=== PATIENT | female | born 1930 | race Caucasian/White ===

== ENCOUNTER 2018-04-23 20:41 | Emergency (ER) | payer OTHER ==
[2018-04-23 20:54] VITALS: BP 174/94; PULSE 113; TEMP 98; BMI 38.1
[2018-04-23] MEDS ORDERED: DIPHTH,PERTUSS(ACELL),TET 0.5 ML DISP.SYRIN IM ONE (20:55)
--- NOTE | 2018-04-23 20:55 | PDOC ---
Rapid Medical Evaluation Chief Complaint: Injury Time Seen by Provider: 04/23/18 20:51 Medical Evaluation: Allergies Allergy/AdvReac Type Severity Reaction Status Date / Time aspirin AdvReac Verified 08/31/13 11:22 04/23/18 20:51 I have performed a brief in-person evaluation of this patient. The patient presents with a chief complaint of: Pt's son and daughter with pt who speaks IRISH. States she had slippery socks on when she slipped and fell back. Pt struck the right occiput to the corner of the floor causing 3cm vert lac. Neg blood thinners. Neg LOC, Dizziness/lightheadedness, neck pain Pertinent physical exam findings: 3cm vert lac to right occiput I have ordered the following: CT scan Head w/o contrast, Boostrix The patient will proceed to the ED for further evaluation Discharge Disposition - Referrals Referrals: Jose Maria Benítez MD [Primary Care Provider] - - Patient Instructions - Post Discharge Activity
--- NOTE | 2018-04-23 22:30 | PDOC ---
History of Present Illness - General Chief Complaint: Injury Stated Complaint: INJURY Time Seen by Provider: 04/23/18 20:51 History Source: Patient Exam Limitations: Language Barrier - History of Present Illness Initial Comments: 04/24/18 00:39 88-year-old female presents to the ER with her son and nephew complaining of a laceration to the right occiput scalp. Patient states while wearing slippery socks, she slipped and fell, hitting her head on the corner of the room. Fall was witnessed by family who denied any LOC. Patient denies headache, dizziness, lightheadedness, nausea/vomiting, fever/chills, neck pains, back pains, chest pain, shortness of breath, abdominal pains, flank pains, extremity numbness or tingling sensation. Patient denies being on any blood thinners. Patient states she feels fine. Unknown last tetanus. Unknown last tetanus. Past History - Past Medical History Allergies/Adverse Reactions: Allergies Allergy/AdvReac Type Severity Reaction Status Date / Time No Known Allergies Allergy Verified 04/23/18 22:24 Home Medications: Ambulatory Orders Albuterol Sulfate [Proair Hfa -] 1 - 2 inh PO PRN #0 hfa.aer.ad 09/04/13 Calcium Carbonate/Vitamin D3 [Calcium 500 + Vit D 200 Tablet] 1 each PO DAILY # 0 tablet 09/04/13 Docusate Sodium [Colace -] 100 mg PO DAILY #0 capsule 09/04/13 Folic Acid - 1 mg PO DAILY #0 tablet 09/04/13 Lansoprazole [Prevacid] 30 mg PO DAILY #0 capsule.dr 09/04/13 Losartan Potassium 50 mg PO DAILY #0 tablet 09/04/13 Metoprolol Succinate [Toprol XL -] 50 mg PO DAILY #0 tab.sr.24h 09/04/13 Risedronate Sodium [Actonel (Monthly)] 150 mg PO Q30D #0 tablet 09/04/13 traMADol HCL [Ultram -] 50 mg PO Q8H PRN #0 tablet 09/04/13 Cardiac Disorders: No GI Disorders: Yes (ULCER 2004) HTN: Yes Hypercholesterolemia: Yes - Surgical History Abdominal Surgery: Yes (cholecystectomy 2007) Cholecystectomy: Yes - Suicide/Smoking/Psychosocial Hx Smoking Status: No Smoking History: Never smoked Have you smoked in the past 12 months: No Number of Cigarettes Smoked Daily: 0 Hx Alcohol Use: No Drug/Substance Use Hx: No Substance Use Type: None Hx Substance Use Treatment: No Review of Systems - Review of Systems Able to Perform ROS?: Yes Comments:: 04/24/18 00:40 CONSTITUTIONAL: Absent: fever, chills, diaphoresis, generalized weakness, malaise, loss of appetite HEENT: Absent: rhinorrhea, nasal congestion, throat pain, throat swelling, difficulty swallowing, mouth swelling, ear pain, eye pain, visual Changes CARDIOVASCULAR: Absent: chest pain, loss of consciousness, palpitations, irregular heart rate, peripheral edema RESPIRATORY: Absent: cough, shortness of breath, dyspnea with exertion, orthopnea, wheezing, stridor, hemoptysis GASTROINTESTINAL: Absent: abdominal pain, abdominal distension, nausea, vomiting, diarrhea, constipation, melena, hematochezia GENITOURINARY: Absent: dysuria, frequency, urgency, hesitancy, hematuria, flank pain, genital pain MUSCULOSKELETAL: Absent: myalgia, arthralgia, joint swelling SKIN: Absent: rash, itching, pallor HEMATOLOGIC/IMMUNOLOGIC: Absent: easy bleeding, easy bruising, lymphadenopathy, frequent infections ENDOCRINE: Absent: unexplained weight gain, unexplained weight loss, heat intolerance, cold intolerance NEUROLOGIC: Absent: headache, focal weakness or paresthesias, dizziness, unsteady gait, seizure, mental status changes, bladder or bowel incontinence PSYCHIATRIC: Absent: anxiety, depression, suicidal or homicidal ideation, hallucinations. Is the patient limited Chinese proficient: No *Physical Exam - Vital Signs Last Vital Signs Temp Pulse Resp BP Pulse Ox 98.0 F 113 H 13 174/94 96 04/23/18 20:50 04/23/18 20:50 04/23/18 20:50 04/23/18 20:50 04/23/18 20:50 - Physical Exam Comments: 04/24/18 00:40 GENERAL: Well developed, well nourished. Awake and alert. No acute distress. HEENT: Normocephalic, atraumatic. PERRLA, EOMI. No conjunctival pallor. Sclera are non- icteric. Moist mucous membranes. Oropharynx is clear. NECK: Supple. Full ROM. No JVD. Carotid pulses 2+ and symmetric, without bruits. No thyromegaly. No lymphadenopathy. CARDIOVASCULAR: Regular rate and rhythm. No murmurs, rubs, or gallops. Distal pulses are 2+ and symmetric. PULMONARY: No evidence of respiratory distress. Lungs clear to auscultation bilaterally. No wheezing, rales or rhonchi. ABDOMINAL: Soft. Non-tender. Non-distended. No rebound or guarding. No organomegaly. Normoactive bowel sounds. MUSCULOSKELETAL Normal range of motion at all joints. No bony deformities or tenderness. No CVA tenderness. EXTREMITIES: No cyanosis. No clubbing. No edema. No calf tenderness. SKIN: Warm and dry. Normal capillary refill. No rashes. No jaundice. NEUROLOGICAL: Right occiput: 3cm vert lac/full thickness Alert, awake, appropriate. Cranial nerves 2-12 intact. No deficits to light touch and temperature in face, upper extremities and lower extremities. No motor deficits in the in face, upper extremities and lower extremities. Normoreflexic in the upper and lower extremities. Normal speech. Toes are down- going bilaterally. Gait is normal without ataxia. PSYCHIATRIC: Cooperative. Good eye contact. Appropriate mood and affect. PROCEDURE NOTE Right occiput: 3 cm vertical laceration/full thickness Betadine prep 1% lidocaine: 5 mL Normal saline irrigation/copious (2) 4-0 Vicryl subcutaneous/ (5) rosaura Bacitracin Patient refuses Telfa and kerlex ED Treatment Course - RADIOLOGY Radiology Studies Ordered: Category Date Time Status HEAD CT WITHOUT CONTRAST [CT] Stat CT Scan 04/23/18 21:25 Completed Radiograph Interpretation: 04/24/18 00:42 CT head w/o contrast: neg *DC/Admit/Observation/Transfer Diagnosis at time of Disposition: Laceration of scalp Qualifiers: Encounter type: initial encounter Qualified Code(s): S01.01XA - Laceration without foreign body of scalp, initial encounter Head injury Qualifiers: Encounter type: initial encounter Qualified Code(s): S09.90XA - Unspecified injury of head, initial encounter - Discharge Dispostion Disposition: HOME Condition at time of disposition: Stable Decision to Admit order: No - Referrals Referrals: Jose Maria Benítez MD [Primary Care Provider] - - Patient Instructions Printed Discharge Instructions: DI for Laceration Repair of the Scalp, DI for Closed Head Injury Additional Instructions: Keep the incision clean and dry for 24 hours After 24 hours, you can get the incision wet. Avoid soaking Tylenol/motrin as needed for pain Wound check in 2 days Staple removal in 11 days Return to the ER for signs of infection: redness/swelling, drainage, dizziness - Post Discharge Activity
== END 2018-04-23 22:33 | disposition home or self-care (01) ==
LOC: JER 20:41 → JERFT 20:41
PROC: 0HQ0XZZ Repair Scalp Skin, External Approach (ICD-10-PCS; principal; 2018-04-23)
PROC: 3E0234Z Introduction of Serum, Toxoid and Vaccine into Muscle, Percutaneous Approach (ICD-10-PCS; 2018-04-23)
DX: S01.01XA Laceration without foreign body of scalp, initial encounter (principal); W01.0XXA Fall on same level from slipping, tripping and stumbling without subsequent striking against object, initial encounter; Y93.89 Activity, other specified; Y92.018 Other place in single-family (private) house as the place of occurrence of the external cause; I10 Essential (primary) hypertension; E78.00 Pure hypercholesterolemia, unspecified; Z87.19 Personal history of other diseases of the digestive system; Z90.49 Acquired absence of other specified parts of digestive tract
CPT/HCPCS: 12002; 70450-TC; 90471; 90715; 99281-25

== ENCOUNTER 2018-09-16 13:15 | Inpatient (IN) | payer OTHER ==
--- NOTE | 2018-09-16 13:30 | PDOC ---
Attending Attestation - HPI HPI: 09/16/18 16:06 Patient is an 88 year old female with a significant past medical history of HTN , Hypercholesterolemia, Amyloidosis (inactive since 2004, chronic SOB as a result of dx), who presents to the ED with complaints of diffuse abdominal pain that began last night. As per patient's daughter, patient began to experiencing gradually increased diffuse abdominal pain that she states subsided slightly before becoming acute this morning, prompting her to bring the patient into the ED for further evaluation. Patient reports abdominal pain is diffuse but states the pain is most intense in her RLQ. As per patient's grand son, patient was given 10 of oxy prior to ED arrival for pain with minor relief. Denies chest pain, Sob. Denies nausea, vomiting. Denies contact with sick individuals, out of state travelling. Denies trauma to affected area. Denies any constipation, diarrhea. Denies dysuria, hematuria. Denies any other symptoms. Allergies: None Social history: No smoking. No alcohol. No illicit drugs. Surgical history: cholecystectomy 2007 PMD: None - Physicial Exam PE: 09/16/18 16:06 Vitals: Triage Vital signs reviewed General Appearance: no acute distress, well nourished well developed Head: Atraumatic Chest Wall: Nontender Cardiac: Regular rate and rhythm, no murmurs, no rubs, no gallops Lungs: Clear to auscultation bilateral, good air movement bilaterally Abdomen: +Moderate RLQ tenderness to palpation. +Diffuse abdominal tenderness to palpation. Soft, non distended, normal bowel sounds Extremities: Full range of motion to all extremities, no cyanosis, clubbing, or edema Skin: Warm and dry, no rashes or lesions, no rash, no petechiae Neuro: AOX3; Cranial Nerves 2-12 grossly intact, Strength intact to all extremities, Sensation intact to all extremities, gait normal Psych: Normal mood, normal affect <Christophe Salguero - Last Filed: 09/16/18 16:23> - Resident Resident Name: Shawn Reese - ED Attending Attestation I have performed the following: I have examined & evaluated the patient, The case was reviewed & discussed with the resident, I agree w/resident's findings & plan, Exceptions are as noted - Critical Care Time Total Critical Care Time: 75 Critical Care Statement: The care of this patient involved high complexity decision making to prevent further life threatening deterioration of the patient 's condition and/or to evaluate & treat vital organ system(s) failure or risk of failure. 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 fib with RVR and diffuse abdominal pain. 1 L normal saline ordered patient placed on diltiazem drip after 5 mg bolus labs pending Labs notable for WBC of 14 creatinine normal CAT scan demonstates bowel edema possible pneumatosis Findings discussed with family. Goals of care redressed with family. Patient is DNR/DNI we will refill out paperwork as they do not have them with them Overall prognosis very poor given AML as well as new onset A. fib with RVR and now evidence of ischemia on abdominal CT when patient arrived back was acutely short of breath steroids nebs ordered BiPAP ordered however patient did not tolerate BiPAP placed back on a nasal cannula One dose Lasix given Patient continues to be on diltiazem drip we'll monitor breathing keep patient is comfortable's possible palliative care consultation and admit to medicine for further management. <Madi Robb - Last Filed: 09/16/18 21:48> Heart Score/ECG Review - ECG Impressions Comment:: 09/16/18 21:48 EKG performed at 1445 demonstrates fibrillation at [address] elevations or T -wave inversions. <Madi Robb - Last Filed: 09/16/18 21:48>
[2018-09-16 13:31] VITALS: BMI 38.1
--- NOTE | 2018-09-16 13:32 | PDOC ---
History of Present Illness - General Chief Complaint: Pain Stated Complaint: ABD PAIN Time Seen by Provider: 09/16/18 13:28 - History of Present Illness Initial Comments: 09/16/18 14:23 The patient is an 88 year old female with a history of HTN, HLD, recently diagnosed AML who presents for evaluation of abdominal pain. The patient is accompanied by family who assist in providing the history. They report that the patient has been experiencing increasingly worsening abdominal pain over the past 1-2 days. The patient's pain has been getting more severe in the RLQ prompting their presentation to the ED for further evaluation. They also note that the patient has been having some increased SOB as well, but otherwise deny fevers, chills, chest pain, vomiting, or changes with urination or bowel movements. Past History - Past Medical History Allergies/Adverse Reactions: Allergies Allergy/AdvReac Type Severity Reaction Status Date / Time No Known Allergies Allergy Verified 04/23/18 22:24 Home Medications: Ambulatory Orders Albuterol Sulfate [Proair Hfa -] 1 - 2 inh PO PRN #0 hfa.aer.ad 09/04/13 Calcium Carbonate/Vitamin D3 [Calcium 500 + Vit D 200 Tablet] 1 each PO DAILY # 0 tablet 09/04/13 Docusate Sodium [Colace -] 100 mg PO DAILY #0 capsule 09/04/13 Folic Acid - 1 mg PO DAILY #0 tablet 09/04/13 Lansoprazole [Prevacid] 30 mg PO DAILY #0 capsule.dr 09/04/13 Losartan Potassium 50 mg PO DAILY #0 tablet 09/04/13 Metoprolol Succinate [Toprol XL -] 50 mg PO DAILY #0 tab.sr.24h 09/04/13 traMADol HCL [Ultram -] 50 mg PO Q8H PRN #0 tablet 09/04/13 Cyanocobalamin [Vitamin B12 -] 1,000 mcg PO DAILY 09/16/18 Hydroxyurea [Hydrea -] 500 mg PO BID 09/16/18 Hyoscyamine Sulfate [Levsin] 0.375 mg PO ASDIR PRN 09/16/18 Meclizine HCl [Antivert -] 25 mg PO TID PRN 09/16/18 Ondansetron [Zofran Odt -] 4 mg SL TID PRN 09/16/18 Cardiac Disorders: No COPD: No CHF: No GI Disorders: Yes (ULCER 2004) HTN: Yes Hypercholesterolemia: Yes - Surgical History Abdominal Surgery: Yes (cholecystectomy 2007) Cholecystectomy: Yes - Suicide/Smoking/Psychosocial Hx Smoking Status: No Smoking History: Never smoked Have you smoked in the past 12 months: No Number of Cigarettes Smoked Daily: 0 Information on smoking cessation initiated: No Hx Alcohol Use: No Drug/Substance Use Hx: No Substance Use Type: None Hx Substance Use Treatment: No Review of Systems - Review of Systems Comments:: 09/16/18 14:29 Constitutional: No fevers, chills, fatigue, malaise HEENT: No Rhinorrhea, nasal congestion, visual changes Cardiovascular: No chest pain, syncope, palpitations, lightheadedness Respiratory: SOB. No Cough, Hemoptysis, Gastrointestinal: Abdominal pain, Nausea. No Vomiting, Constipation, Diarrhea, Melena Genitourinary: No Dysuria, Frequency, Urgency, Hesitancy, Hematuria, Flank pain Musculoskeletal: No Myalgia, arthralgia Skin: No rashes, itching, bruising, pallor Neurologic: No Headache, Dizziness, Numbness, Weakness, or Tingling Psychiatric: No Hallucinations. No SI or HI *Physical Exam - Vital Signs Last Vital Signs Temp Pulse Resp BP Pulse Ox 99.0 F 69 16 129/74 100 09/16/18 13:15 09/16/18 13:15 09/16/18 13:15 09/16/18 13:15 09/16/18 13:15 - Physical Exam Comments: 09/16/18 14:30 General Appearance: Nourished. In Moderate Apparent Distress HEENT: No Pharyngeal Erythema, Tonsillar Exudate, Tonsillar Erythema Neck: No Cervical Lymphadenopathy Respiratory/Chest: Lungs Clear, Normal Breath Sounds. No Crackles, Rales, Rhonchi, Wheezing Cardiovascular: Irregularly Irregular Rhythm, Tachycardic Rate. No Murmur, Gallops, Rubs Gastrointestinal/Abdominal: Normal Bowel Sounds, Soft. Diffuse tenderness to palpation worse in the RLQ with guarding. No Rebound, Musculoskeletal: No CVA Tenderness Extremity: Normal Capillary Refill Integumentary: Normal Color, Dry, Warm Neurologic: Fully Oriented, Alert, Normal Mood/Affect, Normal Response, Heart Score/ECG Review #1 ECG reviewed & interpreted by me at: 14:32 09/16/18 14:32 Atrial Fibrillation with RVR HR 121 No Acute Ischemic Changes. ED Treatment Course - LABORATORY CBC & Chemistry Diagram: 09/18/18 05:30 09/18/18 05:30 Medical Decision Making - Medical Decision Making 09/16/18 14:32 The patient is an 88 year old female with a history of HTN, HLD, recently diagnosed AML who presents for evaluation of abdominal pain. Differential includes but is not limited to: Appendicitis, Pancreatitis, Afib with RVR, Intra -abdominal pathology, Infectious, Metabolic Derangement. Given the patient's history and physical exam, we will obtain a cbc, cmp, troponin, vbg, ua, urine culture, blood culture, chest plain film, ekg, CT abdomen/pelvis to evaluate further. We will treat with iv fluids in the meantime and continue to monitor and reassess while here in the ED. 09/16/18 16:07 CBC demonstrates an elevated wbc to 14. CMP demonstrates a calcium of 6.5. Troponin is unremarkable. BNP is elevated to 5000s. Chest plain film was unremarkable. CT abdomen/pelvis demonstrated findings consistent with earlier bowel ischemia as read by our radiologist likely due to the patient's new onset afib with rvr. Patient's heart rate has continued to remain elevated despite being on a diltiazem drip. The patient developed some increased respiratory distress which is likely due to flash pulmonary edema and improved after duoneb , solu-medrol, lasix and a trial of bipap. Given the patient's multiple health issues, her prognosis is poor. The patient and her family do not want further anticoagulation at this time. Discussion held with the patient's family and the patient was made DNR. We will admit to telemetry. We discussed the case with the admitting team who accepted the patient for admission. *DC/Admit/Observation/Transfer Diagnosis at time of Disposition: Atrial fibrillation with RVR Abdominal pain Qualifiers: Abdominal location: unspecified location Qualified Code(s): R10.9 - Unspecified abdominal pain - Discharge Dispostion Condition at time of disposition: Stable Decision to Admit order: Yes - Referrals - Patient Instructions - Post Discharge Activity
[2018-09-16] MEDS ORDERED: SODIUM CHLORIDE 1,000 ML IV STA ×2 (13:33→15:43)
[2018-09-16] MEDS ORDERED: morphine CARPU-JECT 4 MG/1 ML DISP.SYRIN IVPUSH ONE (14:47)
[2018-09-16 14:52] LABS: BASO % 0.8 % (0-2.0); HEMATOCRIT 29.1 % (32.4-45.2); HEMOGLOBIN 9.3 GM/dL (10.7-15.3); LYMPH % 3.1 % (8-40); MCH 26.8 pg (25.7-33.7); MCHC 32.1 g/dl (32.0-36.0); MEAN CELL VOLUME 83.8 fl (80-96); MEAN PLT VOLUME 9.6 fl (7.5-11.1); MONO % 3.2 % (3.8-10.2); NEUT % 92.9 % (42.8-82.8); PLATELET COUNT 146 K/MM3 (134-434); RBC 3.47 M/mm3 (3.60-5.2); WHITE BLOOD COUNT 14.2 K/mm3 (4.0-10.0)
[2018-09-16] MEDS ORDERED: MORPHINE SULFATE 2 MG/ML VIAL ONE (14:57)
[2018-09-16 15:11] LABS: VENOUS PC02 47.1 mmHg (38-52); VENOUS PH 7.35 (7.32-7.42); VENOUS PO2 31.6 mmHg (28-48)
[2018-09-16 15:31] LABS: ANISOCYTOSIS 1+; MACROCYTOSIS 0; OVALOCYTE 1+; PLATELET ESTIMATE DECREASED
[2018-09-16] MEDS ORDERED: dilTIAZem HCL 50 MG/10 ML - 10 ML VIAL IVPUSH ONE ×2 (15:43→18:30)
[2018-09-16] MEDS ORDERED: dilTIAZem HCL 125 MG/25 ML - 25 ML VIAL ONE (15:56)
[2018-09-16] MEDS ORDERED: DILTIAZEM INJECTION 125 MG in SODIUM CHLORIDE 100 ML IVPB SCH (16:30)
[2018-09-16 16:35] LABS: ALBUMIN 2.4 g/dl (3.4-5.0); ALK PHOS 47 U/L (45-117); ANION GAP 6 MMOL/L (8-16); BILIRUBIN,TOTAL 0.5 mg/dL (0.2-1); BLOOD UREA NITROGEN 20 mg/dL (7-18); CHLORIDE 106 mmol/L (98-107); CO2 26 mmol/L (21-32); CREATININE 0.9 mg/dL (0.55-1.3); GLUCOSE,RANDOM 112 mg/dL (74-106); POTASSIUM 4.1 mmol/L (3.5-5.1); SGOT/AST 5 U/L (15-37); SGPT/ALT 7 U/L (13-61); SODIUM 139 mmol/L (136-145); TOT PROT 5.2 g/dl (6.4-8.2)
[2018-09-16 16:39] LABS: CALCIUM 6.5 mg/dL (8.5-10.1)
[2018-09-16] MEDS ORDERED: ONDANSETRON 4 MG/2 ML VIAL IVPUSH ONE (16:41)
[2018-09-16] MEDS ORDERED: ONDANSETRON 4 MG/2 ML VIAL ONE (16:41)
[2018-09-16] MEDS ORDERED: PIPERACILLIN/TAZOB 4.5 GM 4.5 GM in DEXTROSE 5%-WATER 100 ML IVPB ONE (16:59)
[2018-09-16] MEDS ORDERED: dilTIAZem HCL 50 MG/10 ML - 10 ML VIAL ONE (17:02)
[2018-09-16 17:03] LABS: INR 1.58 (0.83-1.09); PROTHROMBIN TIME (PATIENT) 18.7 SEC (9.7-13.0)
[2018-09-16 17:06] LABS: ACTIVATED PTT 33.8 SECONDS (25.2-36.5)
[2018-09-16] MEDS ORDERED: methylPREDNISolone NA SUCC 125 MG/2 ML VIAL IVPUSH ONE (17:45)
[2018-09-16] MEDS ORDERED: ALBUTEROL SO4 2.5/IPRATROPIUM 0.5 INH SOL 3 ML VIAL.NEB. NEB ONE (17:45)
[2018-09-16] MEDS ORDERED: FUROSEMIDE 40 MG/4 ML INJECTABLE VIAL IVPUSH ONE (17:48)
[2018-09-16] MEDS ORDERED: methylPREDNISolone NA SUCC 125 MG/2 ML VIAL ONE (17:55)
[2018-09-16] MEDS ORDERED: ASPIRIN 81 MG CHEWABLE TABLETS PO ONE (18:31)
[2018-09-16] MEDS ORDERED: PIPERACILLIN/TAZOB 4.5 GM 4.5 GM/100 ML BAG IVPB ONE (18:35)
[2018-09-16] MEDS ORDERED: ASPIRIN 300 MG SUPP.RECT PR ONE (18:57)
[2018-09-16] MEDS ORDERED: FUROSEMIDE 40 MG/4 ML INJECTABLE VIAL ONE (18:59)
--- NOTE | 2018-09-16 21:54 | HP ---
CHIEF COMPLAINT: PCP: HISTORY OF PRESENT ILLNESS: ER course was notable for: (1) (2) (3) Recent Travel: PAST MEDICAL HISTORY: PAST SURGICAL HISTORY: Social History: Smoking: Alcohol: Drugs: Family History: Allergies No Known Allergies Allergy (Verified 04/23/18 22:24) HOME MEDICATIONS: Home Medications Medication Instructions Recorded Albuterol Sulfate [Proair Hfa -] 1 - 2 inh PO PRN #0 hfa.aer.ad 09/04/13 Calcium Carbonate/Vitamin D3 1 each PO DAILY #0 tablet 09/04/13 [Calcium 500 + Vit D 200 Tablet] Docusate Sodium [Colace -] 100 mg PO DAILY #0 capsule 09/04/13 Folic Acid - 1 mg PO DAILY #0 tablet 09/04/13 Lansoprazole [Prevacid] 30 mg PO DAILY #0 capsule.dr 09/04/13 Losartan Potassium 50 mg PO DAILY #0 tablet 09/04/13 Metoprolol Succinate [Toprol XL -] 50 mg PO DAILY #0 tab.sr.24h 09/04/13 traMADol HCL [Ultram -] 50 mg PO Q8H PRN #0 tablet 09/04/13 Cyanocobalamin [Vitamin B12 -] 1,000 mcg PO DAILY 09/16/18 Hydroxyurea [Hydrea -] 500 mg PO BID 09/16/18 Hyoscyamine Sulfate [Levsin] 0.375 mg PO ASDIR PRN 09/16/18 Meclizine HCl [Antivert -] 25 mg PO TID PRN 09/16/18 Ondansetron [Zofran Odt -] 4 mg SL TID PRN 09/16/18 REVIEW OF SYSTEMS CONSTITUTIONAL: Absent: fever, chills, diaphoresis, generalized weakness, malaise, loss of appetite, weight change HEENT: Absent: rhinorrhea, nasal congestion, throat pain, throat swelling, difficulty swallowing, mouth swelling, ear pain, eye pain, visual changes CARDIOVASCULAR: Absent: chest pain, syncope, palpitations, irregular heart rate, lightheadedness , peripheral edema RESPIRATORY: Absent: cough, shortness of breath, dyspnea with exertion, orthopnea, wheezing, stridor, hemoptysis GASTROINTESTINAL: Absent: abdominal pain, abdominal distension, nausea, vomiting, diarrhea, constipation, melena, hematochezia GENITOURINARY: Absent: dysuria, frequency, urgency, hesitancy, hematuria, flank pain, genital pain MUSCULOSKELETAL: Absent: myalgia, arthralgia, joint swelling, back pain, neck pain SKIN: Absent: rash, itching, pallor HEMATOLOGIC/IMMUNOLOGIC: Absent: easy bleeding, easy bruising, lymphadenopathy, frequent infections ENDOCRINE: Absent: unexplained weight gain, unexplained weight loss, heat intolerance, cold intolerance NEUROLOGIC: Absent: headache, focal weakness or paresthesias, dizziness, unsteady gait, seizure, mental status changes, bladder or bowel incontinence PSYCHIATRIC: Absent: anxiety, depression, suicidal or homicidal ideation, hallucinations. PHYSICAL EXAMINATION Vital Signs - 24 hr 09/16/18 09/16/18 09/16/18 13:15 15:12 15:59 Temperature 99.0 F Pulse Rate 69 Pulse Rate [ 130 H Apical] Respiratory 16 17 25 H Rate Blood Pressure 129/74 Blood Pressure 100/79 101/64 [Left Arm] O2 Sat by Pulse 100 92 L 93 L Oximetry (%) 09/16/18 09/16/18 17:51 18:13 Temperature Pulse Rate 141 H Pulse Rate [ Apical] Respiratory Rate Blood Pressure 146/86 Blood Pressure [Left Arm] O2 Sat by Pulse 100 Oximetry (%) GENERAL: Awake, alert, and fully oriented, in no acute distress. HEAD: Normal with no signs of trauma. EYES: Pupils equal, round and reactive to light, extraocular movements intact, sclera anicteric, conjunctiva clear. No lid lag. EARS, NOSE, THROAT: Ears normal, nares patent, oropharynx clear without exudates. Moist mucous membranes. NECK: Normal range of motion, supple without lymphadenopathy, JVD, or masses. LUNGS: Breath sounds equal, clear to auscultation bilaterally. No wheezes, and no crackles. No accessory muscle use. HEART: Regular rate and rhythm, normal S1 and S2 without murmur, rub or gallop. ABDOMEN: Soft, nontender, not distended, normoactive bowel sounds, no guarding, no rebound, no masses. No hepatomegaly or splenomegaly. MUSCULOSKELETAL: Normal range of motion at all joints. No bony deformities or tenderness. No CVA tenderness. UPPER EXTREMITIES: 2+ pulses, warm, well-perfused. No cyanosis. No clubbing. No peripheral edema. LOWER EXTREMITIES: 2+ pulses, warm, well-perfused. No calf tenderness. No peripheral edema. NEUROLOGICAL: Cranial nerves II-XII intact. Normal speech. Normal gait. PSYCHIATRIC: Cooperative. Good eye contact. Appropriate mood and affect. SKIN: Warm, dry, normal turgor, no rashes or lesions noted, normal capillary refill. Laboratory Results - last 24 hr 09/16/18 09/16/18 09/16/18 14:40 14:41 14:41 WBC 14.2 H RBC 3.47 L Hgb 9.3 L Hct 29.1 L MCV 83.8 MCH 26.8 D MCHC 32.1 RDW 18.0 H Plt Count 146 D MPV 9.6 D Absolute Neuts (auto) 13.2 H Neutrophils % 92.9 H D Neutrophils % (Manual) 89.0 H Band Neutrophils % 0.0 Lymphocytes % 3.1 L D Lymphocytes % (Manual) 5.0 L Monocytes % 3.2 L Monocytes % (Manual) 2 L Eosinophils % 0.0 D Eosinophils % (Manual) 0.0 Basophils % 0.8 Basophils % (Manual) 1.0 Myelocytes % (Man) 0 Promyelocytes % (Man) 0 Blast Cells % (Manual) 0 Nucleated RBC % 0 Metamyelocytes 0 Hypochromia 0 Platelet Estimate Decreased Polychromasia 0 Poikilocytosis 1+ Anisocytosis 1+ Microcytosis 1+ Macrocytosis 0 Ovalocytes 1+ Fragmented RBCs 1+ PT with INR 18.70 H INR 1.58 H PTT (Actin FS) 33.8 VBG pH 7.35 POC VBG pCO2 47.1 POC VBG pO2 31.6 Mixed VBG HCO3 25.4 H Sodium Potassium Chloride Carbon Dioxide Anion Gap BUN Creatinine Creat Clearance w eGFR Random Glucose Lactic Acid Calcium Total Bilirubin AST ALT Alkaline Phosphatase Troponin I Total Protein Albumin 09/16/18 09/16/18 09/16/18 14:41 14:41 15:39 WBC RBC Hgb Hct MCV MCH MCHC RDW Plt Count MPV Absolute Neuts (auto) Neutrophils % Neutrophils % (Manual) Band Neutrophils % Lymphocytes % Lymphocytes % (Manual) Monocytes % Monocytes % (Manual) Eosinophils % Eosinophils % (Manual) Basophils % Basophils % (Manual) Myelocytes % (Man) Promyelocytes % (Man) Blast Cells % (Manual) Nucleated RBC % Metamyelocytes Hypochromia Platelet Estimate Polychromasia Poikilocytosis Anisocytosis Microcytosis Macrocytosis Ovalocytes Fragmented RBCs PT with INR INR PTT (Actin FS) VBG pH POC VBG pCO2 POC VBG pO2 Mixed VBG HCO3 Sodium Cancelled Potassium Cancelled Chloride Cancelled Carbon Dioxide Cancelled Anion Gap Cancelled BUN Cancelled Creatinine Cancelled Creat Clearance w eGFR Cancelled Random Glucose Cancelled Lactic Acid 1.0 1.1 Calcium Cancelled Total Bilirubin Cancelled AST Cancelled ALT Cancelled Alkaline Phosphatase Cancelled Troponin I Cancelled Total Protein Cancelled Albumin Cancelled 09/16/18 15:39 WBC RBC Hgb Hct MCV MCH MCHC RDW Plt Count MPV Absolute Neuts (auto) Neutrophils % Neutrophils % (Manual) Band Neutrophils % Lymphocytes % Lymphocytes % (Manual) Monocytes % Monocytes % (Manual) Eosinophils % Eosinophils % (Manual) Basophils % Basophils % (Manual) Myelocytes % (Man) Promyelocytes % (Man) Blast Cells % (Manual) Nucleated RBC % Metamyelocytes Hypochromia Platelet Estimate Polychromasia Poikilocytosis Anisocytosis Microcytosis Macrocytosis Ovalocytes Fragmented RBCs PT with INR INR PTT (Actin FS) VBG pH POC VBG pCO2 POC VBG pO2 Mixed VBG HCO3 Sodium 139 Potassium 4.1 Chloride 106 Carbon Dioxide 26 Anion Gap 6 L BUN 20 H Creatinine 0.9 Creat Clearance w eGFR 59.23 Random Glucose 112 H Lactic Acid Calcium 6.5 L* Total Bilirubin 0.5 AST 5 L ALT 7 L Alkaline Phosphatase 47 Troponin I < 0.02 Total Protein 5.2 L Albumin 2.4 L ASSESSMENT/PLAN:
[2018-09-16 23:04] LABS: URINE APPEARANCE CLEAR; URINE BILIRUBIN NEGATIVE (<2.0 mg/dL); URINE COLOR STRAW; URINE GLUCOSE (UA) NEGATIVE (NEGATIVE); URINE KETONE NEGATIVE (NEGATIVE); URINE LEUK ESTERASE NEGATIVE (NEGATIVE); URINE NITRITE NEGATIVE (NEGATIVE); URINE PROTEIN NEGATIVE (NEGATIVE); URINE UROBILINOGEN NEGATIVE mg/dL (0.2-1.0)
[2018-09-16 23:13] LABS: EPI CELLS RARE /HPF (FEW)
--- NOTE | 2018-09-16 23:27 | HP ---
Admitting History and Physical - Primary Care Physician PCP: Sihla Day - Admission Chief Complaint: SOB, Abdominal Pain History of Present Illness: 88 y/o woman with a PMHx of: HTN, HLD, Bleeding Ulcer, AML. Who presents to the ED with family for abdominal pain, increased SOB x 1-2 days. Patient's daughter who was at bedside, provided HPI, patient is Danish speaking [place]. Patient' s daughter reports that the patient's pain has been increased over the last 1-2 days. She reports that the patient is taking Oxycodone with no relief. Per the daughter the patient has had increased SOB, WHITEHEAD when ambulating at home. Per the daughter the family request that the patient not be told of her AML diagnosis, they would like to take her home and continue comfort measures. History Source: Family Member Limitations to Obtaining History: Language Barrier - Past Medical History Cardiovascular: Yes: HTN, Hyperlipdemia Heme/Onc: Yes: Other (AML) - Past Surgical History Past Surgical History: Yes: Cholecystectomy, Upper Endoscopy - Advance Directives Advance Directives: Yes: DNR - Smoking History Smoking history: Never smoked Have you smoked in the past 12 months: No Aproximately how many cigarettes per day: 0 - Alcohol/Substance Use Hx Alcohol Use: No History of Substance Use: reports: None - Social History Usual Living Arrangement: Yes: With Child ADL: Family Assistance History of Recent Travel: No Home Medications - Allergies Allergies/Adverse Reactions: Allergies Allergy/AdvReac Type Severity Reaction Status Date / Time No Known Allergies Allergy Verified 04/23/18 22:24 - Home Medications Home Medications: Ambulatory Orders Albuterol Sulfate [Proair Hfa -] 1 - 2 inh PO PRN #0 hfa.aer.ad 09/04/13 Calcium Carbonate/Vitamin D3 [Calcium 500 + Vit D 200 Tablet] 1 each PO DAILY # 0 tablet 09/04/13 Docusate Sodium [Colace -] 100 mg PO DAILY #0 capsule 09/04/13 Folic Acid - 1 mg PO DAILY #0 tablet 09/04/13 Lansoprazole [Prevacid] 30 mg PO DAILY #0 capsule.dr 09/04/13 Losartan Potassium 50 mg PO DAILY #0 tablet 09/04/13 Metoprolol Succinate [Toprol XL -] 50 mg PO DAILY #0 tab.sr.24h 09/04/13 traMADol HCL [Ultram -] 50 mg PO Q8H PRN #0 tablet 09/04/13 Cyanocobalamin [Vitamin B12 -] 1,000 mcg PO DAILY 09/16/18 Hydroxyurea [Hydrea -] 500 mg PO BID 09/16/18 Hyoscyamine Sulfate [Levsin] 0.375 mg PO ASDIR PRN 09/16/18 Meclizine HCl [Antivert -] 25 mg PO TID PRN 09/16/18 Ondansetron [Zofran Odt -] 4 mg SL TID PRN 09/16/18 Family Disease History - Family Disease History Family History: Denies Review of Systems - Review of Systems Constitutional: reports: Loss of Appetite Eyes: reports: No Symptoms HENT: reports: No Symptoms Neck: reports: No Symptoms Cardiovascular: reports: Shortness of Breath Respiratory: reports: SOB, SOB on Exertion Gastrointestinal: reports: Abdominal Pain, Nausea Genitourinary: reports: No Symptoms Breasts: reports: No Symptoms Reported Musculoskeletal: reports: No Symptoms Integumentary: reports: No Symptoms Neurological: reports: No Symptoms Endocrine: reports: No Symptoms Hematology/Lymphatic: reports: Easily Bruised Psychiatric: reports: No Symptoms Pain Intensity: 5 Physical Examination Vital Signs: Vital Signs Temperature 99.0 F 09/16/18 13:15 Pulse Rate 102 H 09/16/18 22:22 Respiratory Rate 22 H 09/16/18 22:22 Blood Pressure 99/48 L 09/16/18 22:22 O2 Sat by Pulse Oximetry (%) 97 09/16/18 22:22 Constitutional: Yes: Well Nourished, Mild Distress, Obese Eyes: Yes: WNL, Conjunctiva Clear, EOM Intact, PERRL HENT: Yes: WNL, Atraumatic, Normocephalic Neck: Yes: WNL, Supple, Trachea Midline Cardiovascular: Yes: Pulse Irregular, S1, S2 Respiratory: Yes: Regular, CTA Bilaterally, On Nasal O2 Gastrointestinal: Yes: Abdomen, Obese, Hypoactive Bowel Sounds, Tenderness Renal/: Yes: WNL Breast(s): Yes: WNL Musculoskeletal: Yes: WNL Extremities: Yes: WNL Edema: No Labs: CBC, BMP 09/16/18 14:41 09/16/18 15:39 Imaging - Results Chest X-ray: Report Reviewed, Image Reviewed Cat Scan: Report Reviewed, Image Reviewed EKG: Image Reviewed Problem List - Problems (1) HTN (hypertension) Code(s): I10 - ESSENTIAL (PRIMARY) HYPERTENSION (2) HLD (hyperlipidemia) Code(s): E78.5 - HYPERLIPIDEMIA, UNSPECIFIED (3) AML (acute myeloblastic leukemia) Code(s): C92.00 - ACUTE MYELOBLASTIC LEUKEMIA, NOT HAVING ACHIEVED REMISSION (4) Abdominal pain Code(s): R10.9 - UNSPECIFIED ABDOMINAL PAIN Qualifiers: Abdominal location: unspecified location Qualified Code(s): R10.9 - Unspecified abdominal pain (5) Atrial fibrillation with RVR Code(s): I48.91 - UNSPECIFIED ATRIAL FIBRILLATION Assessment/Plan This is a 88 y/o woman with a PMHx of: HTN, HLD, AML. Admitted to Telemetry for Newonset Afib with RVR, Acute Colitis and Intractable Abdominal Pain, for further evaluation of their emergent condition. Plan: 1. Cardiovascular: Newonset Afib- likely secondary to Malignancy vs DVT vs PE Hypertension Hyperlipidemia Will admit to Telemetry Continue Cardiac monitoring [id number] Score 4 - pt would benefit from AC however risks associated secondary to GIB hx, will defer to Cardiology Appreciate Cardiology consult Wells Score 4 PERC Rule 2 Criteria CTAP was done for abdominal pain- small bilateral pleural effusions Asa given in ED Cardizem I and Cardizem Drip with titration started in ED will d/c when HR <100 for rate control Will continue BB when Cardizem Drip d/c Monitor CBC, BMP Serial Enzymes EKG in am Duplex of LE r/o DVT in am Continue home meds 2. GI: Acute Colitis Intractable Abdominal Pain Likely secondary to Acute Colitis CTAP showed mild concentric wall edema along length of the cecum to ascending colon as well as the hepatic flexure consistent with acute colitis- ? ischemic vs inflammatory or infectious etiologies, minimal to mild splenomegaly, small b/ l pleural effusions, 2.5 x 1.7cm left adnexal cyst Zosyn given in ED. will continue Appreciate ID consult Appreciate GI consult Stool Cultures C- diff Cultures Lactic Acid- nl Monitor CBC, BMP Monitor vitals 3. Oncology: AML Family is in discussion regarding having patient- comfort care at home The daughter who is "acting POA" is not interested in Palliative Care Services right now, would like to discuss with the entire family FEN IVF Monitor lytes, Calcium corrected 7.8 NPO DVT ppx OOB SCDs- when Duplex reports are resulted Heparin SQ Code Status: DNR Dispo: Requires Inpatient Care Visit type - Emergency Visit Emergency Visit: Yes ED Registration Date: 09/16/18 Care time: The patient presented to the Emergency Department on the above date and was hospitalized for further evaluation of their emergent condition. - New Patient This patient is new to me today: Yes Date on this admission: 09/16/18 - Critical Care Critical Care patient: No
[2018-09-16 23:33] LABS: N-TERMINAL BNP 5168.5 pg/ml (5-450)
[2018-09-17] MEDS ORDERED: PIPERACILLIN/TAZOB 3.375 GM 3.375 GM in DEXTROSE 5%-WATER - 50 ML IVPB ONE (02:00)
[2018-09-17] MEDS ORDERED: PIPERACILLIN/TAZOB 3.375 GM 3.375 GM/50 ML BAG IVPB ONE ×2 (02:42→10:53)
[2018-09-17] MEDS: DILTIAZEM INJECTION 125 MG in SODIUM CHLORIDE 100 ML IVPB SCH ×2 (05:10→05:14)
[2018-09-17 07:04] LABS: BASO % 0.4 % (0-2.0); HEMATOCRIT 25.6 % (32.4-45.2); HEMOGLOBIN 8.2 GM/dL (10.7-15.3); LYMPH % 5.1 % (8-40); MCH 27.3 pg (25.7-33.7); MCHC 32.2 g/dl (32.0-36.0); MEAN CELL VOLUME 84.8 fl (80-96); MEAN PLT VOLUME 9.3 fl (7.5-11.1); MONO % 2.1 % (3.8-10.2); NEUT % 92.4 % (42.8-82.8); PLATELET COUNT 85 K/MM3 (134-434); RBC 3.02 M/mm3 (3.60-5.2); RDW 17.8 % (11.6-15.6); WHITE BLOOD COUNT 10.4 K/mm3 (4.0-10.0)
[2018-09-17 07:26] LABS: ANION GAP 12 MMOL/L (8-16); BLOOD UREA NITROGEN 21 mg/dL (7-18); CHLORIDE 106 mmol/L (98-107); CO2 24 mmol/L (21-32); GLUCOSE,RANDOM 145 mg/dL (74-106); MAGNESIUM 1.2 mg/dL (1.8-2.4); POTASSIUM 3.8 mmol/L (3.5-5.1); SODIUM 142 mmol/L (136-145)
[2018-09-17 07:31] LABS: CALCIUM 6.3 mg/dL (8.5-10.1)
--- NOTE | 2018-09-17 08:45 | EKG ---
Test Reason : Blood Pressure : / mmHG Vent. Rate : 097 BPM Atrial Rate : 097 BPM P-R Int : 146 ms QRS Dur : 082 ms QT Int : 360 ms P-R-T Axes : 023 007 018 degrees QTc Int : 457 ms SINUS RHYTHM WITH PREMATURE ATRIAL COMPLEXES WITH ABERRANT CONDUCTION WHEN COMPARED WITH ECG OF 16-SEP-2018 14:45, NO SIGNIFICANT CHANGE WAS FOUND Confirmed by ELICIA MENEZES MD ([id number]) on 09/17/2018 8:45:00 AM Referred By: Confirmed By:ELICIA MENEZES MD
--- NOTE | 2018-09-17 08:52 | EKG ---
Test Reason : Blood Pressure : / mmHG Vent. Rate : 138 BPM Atrial Rate : 138 BPM P-R Int : 144 ms QRS Dur : 074 ms QT Int : 288 ms P-R-T Axes : 069 005 024 degrees QTc Int : 436 ms POOR DATA QUALITY, INTERPRETATION MAY BE ADVERSELY AFFECTED SINUS TACHYCARDIA WITH PREMATURE ATRIAL COMPLEXES Confirmed by ELICIA MENEZES MD ([id number]) on 09/17/2018 8:52:05 AM Referred By: Confirmed By:ELICIA MENEZES MD
[2018-09-17] MEDS ORDERED: ALBUTEROL SO4 0.083% IH SOL 2.5 MG/3 ML VIAL.NEB. NEB ONE (09:00)
[2018-09-17] MEDS ORDERED: morphine SULFATE 4 MG/ML VIAL ONE (09:15)
[2018-09-17] MEDS: MORPHINE SULFATE 2 MG/ML VIAL IVPUSH PRN ×3 (09:24→22:07)
[2018-09-17 09:45] LABS: ACANTHOCYTES 0; ANISOCYTOSIS 2+; MACROCYTOSIS 0; PLATELET ESTIMATE DECREASED; TARGET CELLS 1+
--- NOTE | 2018-09-17 10:35 | CON.ID ---
Consult Consult Specialty:: infectious disease Referred by:: dominic Reason for Consultation:: abdominal pain - History of Present Illness Chief Complaint: family reports worsening abdominal pain over last several days History of Present Illness: daughter at bedside doesnot live with her reports Mom has been declining over the last few months, has had intermittent abdominal pain was diagnosed with AML by Dr Gay at [facility]- no treatment abdominal pain has worsened at home despite pain meds +constipation no fevers +vomiting no appetite +sob no diarrhea no recent antibiotics per daughter and per med list PMD Dr Benítez - History Source History Provided By: Family Member, Medical Record Limitations to Obtaining History: Language Barrier - Past Medical History Cardio/Vascular: Yes: HTN, Hyperlipdemia ...: No Heme/Onc: Yes: Cancer (AML) Additional Medical History: IVC filter - Past Surgical History Past Surgical History: Yes: Cholecystectomy, Upper Endoscopy - Alcohol/Substance Use Hx Alcohol Use: No History of Substance Use: reports: None - Smoking History Smoking history: Never smoked Have you smoked in the past 12 months: No Aproximately how many cigarettes per day: 0 - Social History Usual Living Arrangement: With Child ADL: Family Assistance Place of : Other History of Recent Travel: No Home Medications - Allergies Allergies/Adverse Reactions: Allergies Allergy/AdvReac Type Severity Reaction Status Date / Time No Known Allergies Allergy Verified 04/23/18 22:24 - Home Medications Home Medications: Ambulatory Orders Albuterol Sulfate [Proair Hfa -] 1 - 2 inh PO PRN #0 hfa.aer.ad 09/04/13 Calcium Carbonate/Vitamin D3 [Calcium 500 + Vit D 200 Tablet] 1 each PO DAILY # 0 tablet 09/04/13 Docusate Sodium [Colace -] 100 mg PO DAILY #0 capsule 09/04/13 Folic Acid - 1 mg PO DAILY #0 tablet 09/04/13 Lansoprazole [Prevacid] 30 mg PO DAILY #0 capsule. 09/04/13 Losartan Potassium 50 mg PO DAILY #0 tablet 09/04/13 Metoprolol Succinate [Toprol XL -] 50 mg PO DAILY #0 tab.sr.24h 09/04/13 traMADol HCL [Ultram -] 50 mg PO Q8H PRN #0 tablet 09/04/13 Cyanocobalamin [Vitamin B12 -] 1,000 mcg PO DAILY 09/16/18 Hydroxyurea [Hydrea -] 500 mg PO BID 09/16/18 Hyoscyamine Sulfate [Levsin] 0.375 mg PO ASDIR PRN 09/16/18 Meclizine HCl [Antivert -] 25 mg PO TID PRN 09/16/18 Ondansetron [Zofran Odt -] 4 mg SL TID PRN 09/16/18 Family Disease History - Family Disease History Family History: Unable to Obtain Review of Systems - Review of Systems Constitutional: reports: Loss of Appetite, Unintentional Wgt. Loss. denies: Fever, Lethargy Eyes: reports: No Symptoms HENT: reports: No Symptoms Neck: reports: No Symptoms Cardiovascular: denies: Chest Pain Respiratory: reports: SOB Gastrointestinal: reports: Abdominal Pain, Constipation Genitourinary: reports: No Symptoms Physical Exam Vital Signs: Vital Signs Temperature 99.0 F 09/16/18 13:15 Pulse Rate 104 H 09/17/18 06:30 Respiratory Rate 16 09/17/18 06:30 Blood Pressure 104/58 L 09/17/18 06:30 O2 Sat by Pulse Oximetry (%) 98 09/17/18 06:30 Constitutional: Yes: Well Nourished, No Distress, Calm Eyes: Yes: Conjunctiva Clear, EOM Intact HENT: No: Thrush Neck: Yes: Supple, Trachea Midline Cardiovascular: Yes: Tachycardia, Pulse Irregular Respiratory: Yes: Regular, Diminished (left base) Gastrointestinal: Yes: Normal Bowel Sounds, Soft, Tenderness (diffuse tenderness with increased bilateral lower quadrant tenderness) Renal/: No: Bladder Distention Edema: Yes Edema: LLE: Trace, RLE: Trace Peripheral Pulses WNL: Yes Neurological: Yes: Alert Labs: CBC, BMP 09/17/18 06:30 09/17/18 06:30 cultures sent Imaging - Results Chest X-ray: Report Reviewed, Image Reviewed (dense retrocardiac area, atelectasis) Cat Scan: Report Reviewed, Image Reviewed (possible colitis) Problem List - Problems (1) Abdominal pain Code(s): R10.9 - UNSPECIFIED ABDOMINAL PAIN Qualifiers: Abdominal location: unspecified location Qualified Code(s): R10.9 - Unspecified abdominal pain (2) Atrial fibrillation with RVR Code(s): I48.91 - UNSPECIFIED ATRIAL FIBRILLATION (3) AML (acute myeloblastic leukemia) Code(s): C92.00 - ACUTE MYELOBLASTIC LEUKEMIA, NOT HAVING ACHIEVED REMISSION Assessment/Plan cannot r/o colitis on ct scan- should we repeat? awaiting GI evaluation to discuss continue zosyn for now more comfortable on morphine cardiology evaluation family considering hospice evaluation
[2018-09-17] MEDS ORDERED: PANTOPRAZOLE SODIUM 40 MG in SODIUM CHLORIDE 100 ML IVPB SCH (10:45)
[2018-09-17] MEDS: PIPERACILLIN/TAZOB 3.375 GM 3.375 GM in DEXTROSE 5%-WATER - 50 ML IVPB SCH ×4 (10:50→17:56)
--- NOTE | 2018-09-17 10:51 | CON.CARD ---
Consult Consult Specialty:: Cardiology Referred by:: Amari Salas Reason for Consultation:: Tachycardia - History of Present Illness Chief Complaint: Abdominal pain History of Present Illness: 88 year old female with a pmhx of htn, hld, amyloidosis, chronic sob, and AML who presents with diffuse abdominal pain since night prior to admisison. No chest pain or palpitations. +SOB. CT scan with colitis. WBC 14 EKG: sinus tachycardia with pac's BNP elevated. - History Source History Provided By: Family Member, Medical Record - Past Medical History Cardio/Vascular: Yes: HTN, Hyperlipdemia ...: No - Past Surgical History Past Surgical History: Yes: Cholecystectomy, Upper Endoscopy - Alcohol/Substance Use Hx Alcohol Use: No History of Substance Use: reports: None - Smoking History Smoking history: Never smoked Have you smoked in the past 12 months: No Aproximately how many cigarettes per day: 0 - Social History ADL: Family Assistance History of Recent Travel: No Home Medications - Allergies Allergies/Adverse Reactions: Allergies Allergy/AdvReac Type Severity Reaction Status Date / Time No Known Allergies Allergy Verified 04/23/18 22:24 - Home Medications Home Medications: Ambulatory Orders Albuterol Sulfate [Proair Hfa -] 1 - 2 inh PO PRN #0 hfa.aer.ad 09/04/13 Calcium Carbonate/Vitamin D3 [Calcium 500 + Vit D 200 Tablet] 1 each PO DAILY # 0 tablet 09/04/13 Docusate Sodium [Colace -] 100 mg PO DAILY #0 capsule 09/04/13 Folic Acid - 1 mg PO DAILY #0 tablet 09/04/13 Lansoprazole [Prevacid] 30 mg PO DAILY #0 capsule. 09/04/13 Losartan Potassium 50 mg PO DAILY #0 tablet 09/04/13 Metoprolol Succinate [Toprol XL -] 50 mg PO DAILY #0 tab.sr.24h 09/04/13 traMADol HCL [Ultram -] 50 mg PO Q8H PRN #0 tablet 09/04/13 Cyanocobalamin [Vitamin B12 -] 1,000 mcg PO DAILY 09/16/18 Hydroxyurea [Hydrea -] 500 mg PO BID 09/16/18 Hyoscyamine Sulfate [Levsin] 0.375 mg PO ASDIR PRN 09/16/18 Meclizine HCl [Antivert -] 25 mg PO TID PRN 09/16/18 Ondansetron [Zofran Odt -] 4 mg SL TID PRN 09/16/18 Vital Signs: Vital Signs Temperature 99.0 F 09/16/18 13:15 Pulse Rate 104 H 09/17/18 06:30 Respiratory Rate 16 09/17/18 06:30 Blood Pressure 104/58 L 09/17/18 06:30 O2 Sat by Pulse Oximetry (%) 98 09/17/18 06:30 Constitutional: Yes: Mild Distress Neck: Yes: Supple Respiratory: Yes: Rales Gastrointestinal: Yes: Tenderness Cardiovascular: Yes: Tachycardia JVD: No Carotid Bruit: No PMI: Non-Displaced Heart Sounds: Yes: S1, S2 Murmur: No: Systolic Murmur Edema: LLE: Trace, RLE: Trace - Other Data Labs, Other Data: CBC, BMP 09/17/18 06:30 09/17/18 06:30 INR, PTT INR 1.58 (0.83-1.09) H 09/16/18 14:41 Troponin, BNP 09/16/18 09/16/18 09/16/18 14:41 15:39 22:55 Troponin I Cancelled < 0.02 < 0.02 B-Natriuretic Peptide 5168.5 H 09/16/18 09/17/18 22:55 06:30 Troponin I Cancelled < 0.02 B-Natriuretic Peptide Troponin, BNP 09/16/18 09/16/18 09/16/18 14:41 15:39 22:55 Troponin I Cancelled < 0.02 < 0.02 B-Natriuretic Peptide 5168.5 H 09/16/18 09/17/18 22:55 06:30 Troponin I Cancelled < 0.02 B-Natriuretic Peptide Imaging - Results Chest X-ray: Report Reviewed EKG: Image Reviewed Assessment/Plan 88 year old female with a pmhx of htn, hld, amyloidosis, chronic sob, remote h/ o GI bleed, and AML who presents with diffuse abdominal pain since night prior to admisison. No chest pain or palpitations. +SOB. CT scan with colitis. WBC 14 EKG: sinus tachycardia with pac's BNP elevated. 1) Tachycardia: Shown three ekgs. They are all sinus with pac's. One is read as afib but clear atrial activity/p waves seen. -I cannot diagnose afib based on these ekg's. If afib was seen clearly on the monitor by the primary team than should treat as afib. But currently she is in sinus rhythm and ekg's I was shown by nursing staff was sinus. Treat underlying abdominal issues/colitis Abx as per ID. -Admit to telemetry to better asses HR and rhythm. -Monitor lytes and treat as needed. -Echocardiogram during admission Drop in H/H please trend and treat as needed as per primary team -Please call if afib is noted during telemetry monitoring.
[2018-09-17] MEDS ORDERED: METOCLOPRAMIDE HCL INJECTION 10 MG/2 ML VIAL ONE (10:53)
[2018-09-17] MEDS ORDERED: MAGNESIUM SULF 50% (8.12 MEQ/2 ML-1 GM VIAL) IVPB ONE (11:11)
[2018-09-17] MEDS: METOCLOPRAMIDE HCL INJECTION 10 MG/2 ML VIAL IVPB SCH ×2 (11:13→17:56)
[2018-09-17] MEDS ORDERED: FOLIC ACID INJECTION - 1 MG, THIAMINE HCL 100 MG, MULTIVIT INJECTION ADULT 10 ML in SOD... IVPB ONE (11:14)
--- NOTE | 2018-09-17 11:19 | PN ---
Progress Note, Physician Chief Complaint: AWAKE ALERT EVENTS AND NOTES REVIEWED PATIENT IN ER FAMILY BEDSIDE - Current Medication List Current Medications: Active Medications Diltiazem HCl 125 mg/ Sodium (Chloride) 125 mls @ 2.5 mls/hr IVPB TITR LILIANE; Protocol Last Admin: 09/17/18 05:10 Dose: 2.5 mg/hr, 2.5 mls/hr Piperacillin Sod/Tazobactam (Sod 3.375 gm/ Dextrose) 50 mls @ 100 mls/hr IVPB Q8H-IV LILIANE; Protocol Last Admin: 09/17/18 11:13 Dose: 100 mls/hr Folic Acid 1 mg/ Thiamine HCl 100 mg/ Multivitamins/Minerals 10 ml/ Sodium Chloride 1,000 mls @ 125 mls/hr IVPB ONCE ONE Stop: 09/17/18 19:13 Magnesium Sulfate (Magnesium Sulfate) 1 gm IVPB ONCE ONE Stop: 09/17/18 11:12 Metoclopramide HCl (Reglan Injection -) 10 mg IVPB Q8H LILIANE Stop: 09/19/18 23:59 Last Admin: 09/17/18 11:13 Dose: 10 mg Morphine Sulfate (Morphine Sulfate) 1 mg IVPUSH Q4H PRN PRN Reason: PAIN LEVEL 6-10 Last Admin: 09/17/18 09:24 Dose: 1 mg Pantoprazole Sodium (Protonix Iv) 40 mg IVPUSH BID LILIANE - Objective Vital Signs: Vital Signs Temperature 99.0 F 09/16/18 13:15 Pulse Rate 104 H 09/17/18 06:30 Respiratory Rate 16 09/17/18 06:30 Blood Pressure 104/58 L 09/17/18 06:30 O2 Sat by Pulse Oximetry (%) 98 09/17/18 06:30 Constitutional: Yes: Mild Distress Eyes: Yes: WNL HENT: Yes: WNL Neck: Yes: WNL Cardiovascular: Yes: Tachycardia Respiratory: Yes: WNL Gastrointestinal: Yes: Soft, Distention, Tenderness Genitourinary: Yes: WNL Musculoskeletal: Yes: Muscle Weakness Extremities: Yes: WNL Edema: Yes Peripheral Pulses WNL: Yes Integumentary: Yes: Venous Stasis Changes Wound/Incision: Yes: Dressing Dry and Intact Neurological: Yes: Pre-Existing Deficit ...Motor Strength: LLE, RLE Psychiatric: Yes: WNL Labs: CBC, BMP 09/17/18 06:30 09/17/18 06:30 INR, PTT INR 1.58 (0.83-1.09) H 09/16/18 14:41 Problem List - Problems (1) Acute colitis Code(s): K52.9 - NONINFECTIVE GASTROENTERITIS AND COLITIS, UNSPECIFIED (2) AML (acute myeloblastic leukemia) Code(s): C92.00 - ACUTE MYELOBLASTIC LEUKEMIA, NOT HAVING ACHIEVED REMISSION (3) Abdominal pain Code(s): R10.9 - UNSPECIFIED ABDOMINAL PAIN Qualifiers: Abdominal location: unspecified location Qualified Code(s): R10.9 - Unspecified abdominal pain (4) Atrial fibrillation with RVR Code(s): I48.91 - UNSPECIFIED ATRIAL FIBRILLATION (5) HLD (hyperlipidemia) Code(s): E78.5 - HYPERLIPIDEMIA, UNSPECIFIED (6) HTN (hypertension) Code(s): I10 - ESSENTIAL (PRIMARY) HYPERTENSION Assessment/Plan IV ABX PAIN CONTROL NPO BANANA BAG PT DVT PROPHYLAXIS CHANGE CARDIZEM WHEN ABLE TO START DIET SURGERY ROBERT
[2018-09-17] MEDS ORDERED: PANTOPRAZOLE SODIUM 40 MG VIAL ONE (12:06)
[2018-09-17] MEDS ORDERED: MAGNESIUM 1GM/D5W - 1 GM/100 ML IVPB IVPB ONE ×2 (12:06→12:07)
[2018-09-17] MEDS: PANTOPRAZOLE SODIUM 40 MG VIAL IVPUSH SCH ×2 (12:12→22:07)
[2018-09-17] MEDS ORDERED: MORPHINE SULFATE 2 MG/ML VIAL ONE (15:20)
--- NOTE | 2018-09-17 17:06 | PN ---
Progress Note (short form) - Note Progress Note: PULMONARY CONSULTATION DICTATED 09/17/18 IMP ABDOMINAL PAIN SECNNDARY TO ACUTE COLITIS DYSPNEA MULTIPLE FACTORS ABD PAIN,ANEMIA,TACHY-ARRHYTHMIA AML CHRONIC RUL/RML ATELECTASIS HTN ANEMIA PLAN ANALGESICS O2 RATE CONTROL PER CARDIOLOGY ABX PER ID MONITOR H+H NORMAL TRANSFUSION THRESHOLD DR FENG Problem List - Problems (1) Dyspnea Code(s): R06.00 - DYSPNEA, UNSPECIFIED (2) AML (acute myeloblastic leukemia) Code(s): C92.00 - ACUTE MYELOBLASTIC LEUKEMIA, NOT HAVING ACHIEVED REMISSION (3) Abdominal pain Code(s): R10.9 - UNSPECIFIED ABDOMINAL PAIN Qualifiers: Abdominal location: unspecified location Qualified Code(s): R10.9 - Unspecified abdominal pain (4) Acute colitis Code(s): K52.9 - NONINFECTIVE GASTROENTERITIS AND COLITIS, UNSPECIFIED (5) HLD (hyperlipidemia) Code(s): E78.5 - HYPERLIPIDEMIA, UNSPECIFIED (6) HTN (hypertension) Code(s): I10 - ESSENTIAL (PRIMARY) HYPERTENSION (7) Anemia Code(s): D64.9 - ANEMIA, UNSPECIFIED
[2018-09-17] MEDS ORDERED: PIPERACILLIN/TAZOBACTAM 3.375 GM VIAL IVPB ONE (17:45)
[2018-09-17] MEDS ORDERED: DEXTROSE 5%-WATER - 50 ML IVPB ONE (17:45)
--- NOTE | 2018-09-17 19:00 | CON.NEP ---
Consult Consult Specialty:: nephrology Referred by:: dr alfaro Reason for Consultation:: ckd - History of Present Illness Chief Complaint: sob History of Present Illness: h/o ckd renal function this admission is near or at baseline will follow renal function - Past Medical History Cardio/Vascular: Yes: HTN, Hyperlipdemia ...: No Additional Medical History: IVC filter - Past Surgical History Past Surgical History: Yes: Cholecystectomy, Upper Endoscopy - Alcohol/Substance Use Hx Alcohol Use: No History of Substance Use: reports: None - Smoking History Smoking history: Never smoked Have you smoked in the past 12 months: No Aproximately how many cigarettes per day: 0 - Social History Usual Living Arrangement: With Child ADL: Family Assistance History of Recent Travel: No Home Medications - Allergies Allergies/Adverse Reactions: Allergies Allergy/AdvReac Type Severity Reaction Status Date / Time No Known Allergies Allergy Verified 04/23/18 22:24 - Home Medications Home Medications: Ambulatory Orders Albuterol Sulfate [Proair Hfa -] 1 - 2 inh PO PRN #0 hfa.aer.ad 09/04/13 Calcium Carbonate/Vitamin D3 [Calcium 500 + Vit D 200 Tablet] 1 each PO DAILY # 0 tablet 09/04/13 Docusate Sodium [Colace -] 100 mg PO DAILY #0 capsule 09/04/13 Folic Acid - 1 mg PO DAILY #0 tablet 09/04/13 Lansoprazole [Prevacid] 30 mg PO DAILY #0 capsule. 09/04/13 Losartan Potassium 50 mg PO DAILY #0 tablet 09/04/13 Metoprolol Succinate [Toprol XL -] 50 mg PO DAILY #0 tab.sr.24h 09/04/13 traMADol HCL [Ultram -] 50 mg PO Q8H PRN #0 tablet 09/04/13 Cyanocobalamin [Vitamin B12 -] 1,000 mcg PO DAILY 09/16/18 Hydroxyurea [Hydrea -] 500 mg PO BID 09/16/18 Hyoscyamine Sulfate [Levsin] 0.375 mg PO ASDIR PRN 09/16/18 Meclizine HCl [Antivert -] 25 mg PO TID PRN 09/16/18 Ondansetron [Zofran Odt -] 4 mg SL TID PRN 09/16/18 Nephrology Consult - Height Height: 4 ft 8 in - Weight Weight: 170 lb - BMI Body Mass Index (BMI): 38.1 - Lab Results CBC,BMP: CBC, BMP 09/17/18 06:30 09/17/18 06:30 Anion Gap: Anion Gap Anion Gap 12 MMOL/L (8-16) 09/17/18 06:30 - Physical Examination Vital Signs: Vital Signs Temperature 98.8 F 09/17/18 16:30 Pulse Rate 133 H 09/17/18 16:30 Respiratory Rate 22 H 09/17/18 16:30 Blood Pressure 124/55 L 09/17/18 16:30 O2 Sat by Pulse Oximetry (%) 99 09/17/18 16:30 Assessment/Plan CKD Anemia
[2018-09-17] MEDS ORDERED: guaiFENesin 200 MG/10 ML 10 ML UNIT-DOSE CUPS PO ONE (22:15)
[2018-09-18] MEDS ORDERED: PIPERACILLIN/TAZOBACTAM 3.375 GM VIAL IVPB ONE ×3 (01:23→16:53)
[2018-09-18] MEDS ORDERED: DEXTROSE 5%-WATER - 50 ML IVPB ONE ×3 (01:23→16:53)
[2018-09-18] MEDS: PIPERACILLIN/TAZOB 3.375 GM 3.375 GM in DEXTROSE 5%-WATER - 50 ML IVPB SCH ×3 (01:40→17:32)
[2018-09-18] MEDS: MORPHINE SULFATE 2 MG/ML VIAL IVPUSH PRN ×5 (01:41→22:04)
[2018-09-18] MEDS: METOCLOPRAMIDE HCL INJECTION 10 MG/2 ML VIAL IVPB SCH ×2 (01:47→10:16)
[2018-09-18 07:03] LABS: HEMATOCRIT 24.2 % (32.4-45.2); HEMOGLOBIN 7.8 GM/dL (10.7-15.3); MCH 27.1 pg (25.7-33.7); MCHC 32.1 g/dl (32.0-36.0); MEAN CELL VOLUME 84.6 fl (80-96); MEAN PLT VOLUME 9.4 fl (7.5-11.1); PLATELET COUNT 97 K/MM3 (134-434); RBC 2.87 M/mm3 (3.60-5.2); RDW 18.2 % (11.6-15.6); WHITE BLOOD COUNT 9.1 K/mm3 (4.0-10.0)
[2018-09-18] MEDS: DILTIAZEM INJECTION 125 MG in SODIUM CHLORIDE 100 ML IVPB SCH ×2 (07:03→23:45)
[2018-09-18 08:20] LABS: ALBUMIN 2.3 g/dl (3.4-5.0); ALK PHOS 36 U/L (45-117); ANION GAP 10 MMOL/L (8-16); BILIRUBIN,TOTAL 0.4 mg/dL (0.2-1); BLOOD UREA NITROGEN 24 mg/dL (7-18); CHLORIDE 106 mmol/L (98-107); CO2 25 mmol/L (21-32); CREATININE 0.9 mg/dL (0.55-1.3); GLUCOSE,RANDOM 106 mg/dL (74-106); MAGNESIUM 1.4 mg/dL (1.8-2.4); PHOSPHOROUS 2.5 mg/dL (2.5-4.9); POTASSIUM 3.3 mmol/L (3.5-5.1); SGOT/AST 8 U/L (15-37); SGPT/ALT 11 U/L (13-61); SODIUM 141 mmol/L (136-145)
--- NOTE | 2018-09-18 08:24 | CONS ---
PULMONARY CONSULTATION DATE OF CONSULTATION: 09/17/2018 REFERRING PHYSICIAN: Shila Day MD The patient is an 88-year-old white female with a past medical history of hypertension, hyperlipidemia, bleeding ulcers, AML currently not being treated, a nonsmoker, admitted to [facility] with complaints of abdominal pain and increasing shortness of breath over 1-2 days. Patient apparently recently has been declining. As stated before, she has a history of AML but is not on treatment. Lately, she has been getting more dyspneic with exertion. For the past 2 days, she started developing severe abdominal pain associated with diarrhea, nausea. No vomiting. She was taking oxycodone without any relief. Shortness of breath has been increasing over the past couple days, also, possibly secondary to her pain. She denies any cough or hemoptysis. Denies any chest pain. She was also felt initially to be in atrial fibrillation in the emergency room, but Cardiology felt that she has sinus tachycardia, and she was placed on Cardizem. Patient, as stated, was a nonsmoker. There is no history of occupational exposures to chemicals or fumes. Of note, on admission, the patient also underwent a CT of the abdomen and pelvis, revealed evidence of acute colitis, questionable ischemic versus inflammatory versus infectious. She was also noted to have small bilateral effusions, and she had chronic right upper lobe and right middle lobe atelectasis which has not changed since 2013. PAST MEDICAL HISTORY: Again includes hypertension, hyperlipidemia, chronic shortness of breath, AML, questionable amyloid. REVIEW OF SYSTEMS: Positive dyspnea. No chest pain. Positive palpitations. Positive shortness of breath. Positive weakness. Positive abdominal pain. Positive nausea. No vomiting. Positive diarrhea. No fever. No chills. No hemoptysis. SOCIAL HISTORY: Nonsmoker. Born in [place], moved to the [facility] many years ago. CURRENT MEDICATIONS: Include Cardizem, piperacillin, Reglan, Protonix. PHYSICAL EXAMINATION: General: The patient is an elderly white female, well developed, well nourished, awake, alert, appears comfortable, in no acute respiratory distress. Vital Signs: She is currently afebrile. Heart rate is 116, blood pressure is 110/62, respiratory rate is 18, O2 saturation is 99% on 2 L. HEENT: Normocephalic, atraumatic. Neck: Supple. Heart: Tachycardic. S1, S2. Chest: Clear. Abdomen: Soft, nontender. Extremities: No cyanosis or edema. LABORATORY DATA: WBC is 10.4, hemoglobin 8.2, hematocrit 25.6 with a platelet count of 85,000. INR is 1.58. Venous blood gas 7.35, pCO2 of 47, pO2 of 31. Chemistries: BUN 21, creatinine 1.0. BNP is 5168. Chest x-ray: Elevated left hemidiaphragm and plate-like atelectasis of the left base. IMPRESSION: 1. Acute colitis, ischemic, infectious. 2. Dyspnea, most likely multiple factors, secondary to severe anemia, tachycardia, tachyarrhythmia, as well as severe abdominal pain. 3. Acute myeloid leukemia. 4. Hypertension. PLAN: Antibiotics as per Infectious Disease, supplemental O2, rate control as per Cardiology. Obtain followup chest x-rays, cultures. Will follow closely with you. Srinivas [id number]
--- NOTE | 2018-09-18 09:34 | CONSULT ---
Consult Consult Specialty:: surgery Reason for Consultation:: Abdominal pain - History of Present Illness Chief Complaint: RLQ pain for the past 2 days History of Present Illness: 88 year old female with a history of HTN, HLD, recently diagnosed AML who presents for evaluation of abdominal pain. The patient is accompanied by family who assist in providing the history. They report that the patient has been experiencing increasingly worsening abdominal pain over the past 1-2 days. The patient's pain has been getting more severe in the RLQ prompting their presentation to the ED for further evaluation. They also note that the patient has been having some increased SOB as well, but otherwise deny fevers, chills, chest pain, vomiting, or changes with urination or bowel movements. As per Daughter patient has been experiencing pain in the RLQ for approximately 1 month intermittently associated with constipation - Past Medical History Cardio/Vascular: Yes: HTN, Hyperlipdemia ...: No Additional Medical History: IVC filter - Past Surgical History Past Surgical History: Yes: Cholecystectomy, Upper Endoscopy - Alcohol/Substance Use Hx Alcohol Use: No History of Substance Use: reports: None - Smoking History Smoking history: Never smoked Have you smoked in the past 12 months: No Aproximately how many cigarettes per day: 0 - Social History Usual Living Arrangement: With Child ADL: Family Assistance History of Recent Travel: No Home Medications - Allergies Allergies/Adverse Reactions: Allergies Allergy/AdvReac Type Severity Reaction Status Date / Time No Known Allergies Allergy Verified 04/23/18 22:24 - Home Medications Home Medications: Ambulatory Orders Albuterol Sulfate [Proair Hfa -] 1 - 2 inh PO PRN #0 hfa.aer.ad 09/04/13 Calcium Carbonate/Vitamin D3 [Calcium 500 + Vit D 200 Tablet] 1 each PO DAILY # 0 tablet 09/04/13 Docusate Sodium [Colace -] 100 mg PO DAILY #0 capsule 09/04/13 Folic Acid - 1 mg PO DAILY #0 tablet 09/04/13 Lansoprazole [Prevacid] 30 mg PO DAILY #0 capsule.dr 09/04/13 Losartan Potassium 50 mg PO DAILY #0 tablet 09/04/13 Metoprolol Succinate [Toprol XL -] 50 mg PO DAILY #0 tab.sr.24h 09/04/13 traMADol HCL [Ultram -] 50 mg PO Q8H PRN #0 tablet 09/04/13 Cyanocobalamin [Vitamin B12 -] 1,000 mcg PO DAILY 09/16/18 Hydroxyurea [Hydrea -] 500 mg PO BID 09/16/18 Hyoscyamine Sulfate [Levsin] 0.375 mg PO ASDIR PRN 09/16/18 Meclizine HCl [Antivert -] 25 mg PO TID PRN 09/16/18 Ondansetron [Zofran Odt -] 4 mg SL TID PRN 09/16/18 Physical Exam Vital Signs: Vital Signs Temperature 98.7 F 09/18/18 02:00 Pulse Rate 118 H 09/18/18 07:03 Respiratory Rate 22 H 09/18/18 05:24 Blood Pressure 97/55 L 09/18/18 07:03 O2 Sat by Pulse Oximetry (%) 99 09/17/18 21:00 Labs: CBC, BMP 09/18/18 05:30 09/18/18 05:30 Imaging - Results Cat Scan: Report Reviewed, Image Reviewed Problem List - Problems (1) Abdominal pain Code(s): R10.9 - UNSPECIFIED ABDOMINAL PAIN Qualifiers: Abdominal location: unspecified location Qualified Code(s): R10.9 - Unspecified abdominal pain Assessment/Plan 88 yr old Female with HX of AML, Afib presents with RLQ abdominal pain Hospital Day2 on antibiotics and Feeling better reports less pain. Physical exam still demonstrates Tenderness in the RLQ without rebound or guarding. Colitis of unclear etiology. Given the HX. of Afib one must consider ischemic etiolgy. Agree with current treatment plan with antibiotics and close observation. No need for surgical intervention at this time Will follow.
--- NOTE | 2018-09-18 09:44 | PN ---
Progress Note, Physician History of Present Illness: pulmonary alert,less dypneic,less abd pain - Current Medication List Current Medications: Active Medications Diltiazem HCl 125 mg/ Sodium (Chloride) 125 mls @ 2.5 mls/hr IVPB TITR LILIANE; Protocol Last Admin: 09/18/18 07:03 Dose: 10 mg/hr, 10 mls/hr Piperacillin Sod/Tazobactam (Sod 3.375 gm/ Dextrose) 50 mls @ 100 mls/hr IVPB Q8H-IV LILIANE; Protocol Last Admin: 09/18/18 01:40 Dose: 100 mls/hr Metoclopramide HCl (Reglan Injection -) 10 mg IVPB Q8H LILIANE Stop: 09/19/18 23:59 Last Admin: 09/18/18 01:47 Dose: 10 mg Morphine Sulfate (Morphine Sulfate) 1 mg IVPUSH Q4H PRN PRN Reason: PAIN LEVEL 6-10 Last Admin: 09/18/18 06:26 Dose: 1 mg Pantoprazole Sodium (Protonix Iv) 40 mg IVPUSH BID LILIANE Last Admin: 09/17/18 22:07 Dose: 40 mg - Objective Vital Signs: Vital Signs Temperature 98.7 F 09/18/18 02:00 Pulse Rate 118 H 09/18/18 07:03 Respiratory Rate 22 H 09/18/18 05:24 Blood Pressure 97/55 L 09/18/18 07:03 O2 Sat by Pulse Oximetry (%) 99 09/17/18 21:00 Constitutional: Yes: Well Nourished, Calm Eyes: Yes: WNL HENT: Yes: WNL Neck: Yes: WNL Cardiovascular: Yes: Regular Rate and Rhythm, S1, S2 Respiratory: Yes: CTA Bilaterally Gastrointestinal: Yes: Normal Bowel Sounds, Soft Extremities: Yes: WNL Edema: No Labs: CBC, BMP 09/18/18 05:30 09/18/18 05:30 INR, PTT INR 1.58 (0.83-1.09) H 09/16/18 14:41 Problem List - Problems (1) Dyspnea Code(s): R06.00 - DYSPNEA, UNSPECIFIED (2) AML (acute myeloblastic leukemia) Code(s): C92.00 - ACUTE MYELOBLASTIC LEUKEMIA, NOT HAVING ACHIEVED REMISSION (3) Abdominal pain Code(s): R10.9 - UNSPECIFIED ABDOMINAL PAIN Qualifiers: Abdominal location: unspecified location Qualified Code(s): R10.9 - Unspecified abdominal pain (4) Acute colitis Code(s): K52.9 - NONINFECTIVE GASTROENTERITIS AND COLITIS, UNSPECIFIED (5) HLD (hyperlipidemia) Code(s): E78.5 - HYPERLIPIDEMIA, UNSPECIFIED (6) HTN (hypertension) Code(s): I10 - ESSENTIAL (PRIMARY) HYPERTENSION (7) Anemia Code(s): D64.9 - ANEMIA, UNSPECIFIED Assessment/Plan IMP ABDOMINAL PAIN SECNNDARY TO ACUTE COLITIS DYSPNEA MULTIPLE FACTORS ABD PAIN,ANEMIA,TACHY-ARRHYTHMIA AML CHRONIC RUL/RML ATELECTASIS HTN ANEMIA PLAN ANALGESICS O2 RATE CONTROL PER CARDIOLOGY ABX PER ID MONITOR H+H NORMAL TRANSFUSION THRESHOLD DR FENG Problem List - Problems (1) Dyspnea Code(s): R06.00 - DYSPNEA, UNSPECIFIED (2) AML (acute myeloblastic leukemia) Code(s): C92.00 - ACUTE MYELOBLASTIC LEUKEMIA, NOT HAVING ACHIEVED REMISSION (3) Abdominal pain Code(s): R10.9 - UNSPECIFIED ABDOMINAL PAIN Qualifiers: Abdominal location: unspecified location Qualified Code(s): R10.9 - Unspecified abdominal pain (4) Acute colitis Code(s): K52.9 - NONINFECTIVE GASTROENTERITIS AND COLITIS, UNSPECIFIED (5) HLD (hyperlipidemia) Code(s): E78.5 - HYPERLIPIDEMIA, UNSPECIFIED (6) HTN (hypertension) Code(s): I10 - ESSENTIAL (PRIMARY) HYPERTENSION (7) Anemia Code(s): D64.9 - ANEMIA, UNSPECIFIED
[2018-09-18] MEDS: PANTOPRAZOLE SODIUM 40 MG VIAL IVPUSH SCH (10:15)
--- NOTE | 2018-09-18 12:26 | PN ---
Progress Note, Physician Chief Complaint: AWAKE ALERT LESS PAIN TODAY FAMILY BEDSIDE ALERT AND ORIENTED X 3 - Current Medication List Current Medications: Active Medications Diltiazem HCl (Cardizem Cd -) 120 mg PO DAILY [facility] Piperacillin Sod/Tazobactam (Sod 3.375 gm/ Dextrose) 50 mls @ 100 mls/hr IVPB Q8H-IV LILIANE; Protocol Last Admin: 09/18/18 10:15 Dose: 100 mls/hr Potassium Chloride (Potassium Chloride 10 Meq Premix Ivpb -) 10 meq in 100 mls @ 100 mls/hr IVPB Q60M LILIANE Stop: 09/18/18 13:29 Levalbuterol HCl (Xopenex) 0.31 mg IH Q8H PRN PRN Reason: ASTHMA Magnesium Sulfate (Magnesium Sulfate) 1 gm IVPB ONCE ONE Stop: 09/18/18 12:23 Morphine Sulfate (Morphine Sulfate) 1 mg IVPUSH Q4H PRN PRN Reason: PAIN LEVEL 6-10 Last Admin: 09/18/18 10:24 Dose: 1 mg Potassium Chloride (K-Dur -) 10 meq PO ONCE ONE Stop: 09/18/18 12:25 Simethicone (Mylicon -) 80 mg PO Q4H PRN PRN Reason: GAS - Objective Vital Signs: Vital Signs Temperature 98.7 F 09/18/18 02:00 Pulse Rate 118 H 09/18/18 07:03 Respiratory Rate 22 H 09/18/18 05:24 Blood Pressure 97/55 L 09/18/18 07:03 O2 Sat by Pulse Oximetry (%) 99 09/17/18 21:00 Constitutional: Yes: Mild Distress Eyes: Yes: WNL HENT: Yes: WNL Neck: Yes: WNL Cardiovascular: Yes: WNL Respiratory: Yes: WNL Gastrointestinal: Yes: Soft, Tenderness Genitourinary: Yes: WNL Musculoskeletal: Yes: Muscle Weakness Extremities: Yes: WNL Edema: No Peripheral Pulses WNL: Yes Integumentary: Yes: WNL Wound/Incision: Yes: Clean/Dry Neurological: Yes: Pre-Existing Deficit ...Motor Strength: LLE, RLE Psychiatric: Yes: WNL Labs: CBC, BMP 09/18/18 05:30 09/18/18 05:30 INR, PTT INR 1.58 (0.83-1.09) H 09/16/18 14:41 Problem List - Problems (1) Acute colitis Code(s): K52.9 - NONINFECTIVE GASTROENTERITIS AND COLITIS, UNSPECIFIED (2) AML (acute myeloblastic leukemia) Code(s): C92.00 - ACUTE MYELOBLASTIC LEUKEMIA, NOT HAVING ACHIEVED REMISSION (3) Abdominal pain Code(s): R10.9 - UNSPECIFIED ABDOMINAL PAIN Qualifiers: Abdominal location: unspecified location Qualified Code(s): R10.9 - Unspecified abdominal pain (4) Atrial fibrillation with RVR Code(s): I48.91 - UNSPECIFIED ATRIAL FIBRILLATION (5) HLD (hyperlipidemia) Code(s): E78.5 - HYPERLIPIDEMIA, UNSPECIFIED (6) HTN (hypertension) Code(s): I10 - ESSENTIAL (PRIMARY) HYPERTENSION Assessment/Plan SURGERY AND ID CONSULT APPRECIATED OOB TO CHAIR IV ABX NEBS PAIN CONTROL CLEAR DIET CORRECT KCL AND MG+ ORAL REPLETION
[2018-09-18] MEDS ORDERED: KCL 10 MEQ IVPB 10 MEQ/100 ML INFUS.BAG IVPB SCH (12:30)
[2018-09-18] MEDS ORDERED: MAGNESIUM SULF 50% (8.12 MEQ/2 ML-1 GM VIAL) IVPB ONE ×2 (12:45→22:15)
[2018-09-18] MEDS ORDERED: POTASSIUM CHLORIDE TABS 10 MEQ TABLET.ER (FP) PO ONE (12:45)
[2018-09-18] MEDS: SIMETHICONE 80 MG TAB.CHEW (FP) PO PRN ×2 (13:25→20:35)
[2018-09-18] MEDS ORDERED: PT OWN MED DRAWER 7, Y5N ONE (14:49)
--- NOTE | 2018-09-18 14:53 | PN ---
Progress Note (short form) - Note Progress Note: CKD Anemia Current Medications Acetaminophen (Ofirmev Injection -) 1,000 mg IVPB Q6H PRN PRN Reason: PAIN LEVEL 6-10 Diltiazem HCl (Cardizem Cd -) 120 mg PO DAILY LILIANE Piperacillin Sod/Tazobactam (Sod 3.375 gm/ Dextrose) 50 mls @ 100 mls/hr IVPB Q8H-IV LILIANE; Protocol Last Admin: 09/18/18 10:15 Dose: 100 mls/hr Vancomycin HCl (Vancomycin (Pre-Docked)) 1,000 mg in 250 mls @ 166.667 mls/hr IVPB Q24H LILIANE; Protocol Levalbuterol HCl (Xopenex) 0.31 mg IH Q8H PRN PRN Reason: ASTHMA Morphine Sulfate (Morphine Sulfate) 1 mg IVPUSH Q4H PRN PRN Reason: PAIN LEVEL 6-10 Last Admin: 09/18/18 10:24 Dose: 1 mg Simethicone (Mylicon -) 80 mg PO Q4H PRN PRN Reason: GAS Last Admin: 09/18/18 13:25 Dose: 80 mg Last Vital Signs Temp Pulse Resp BP Pulse Ox 98.7 F 118 H 22 H 97/55 L 99 09/18/18 02:00 09/18/18 07:03 09/18/18 05:24 09/18/18 07:03 09/17/18 21:00 CBC, BMP 09/18/18 05:30 09/18/18 05:30 hypokalemia
[2018-09-18] MEDS: ACETAMINOPHEN 1000 MG/100 ML VIAL (NON FORMULARY) IVPB PRN (15:07)
[2018-09-18] MEDS: LEVALBUTEROL HCL 0.31 MG/3 ML VIAL.NEB IH PRN ×2 (15:22→18:04)
--- NOTE | 2018-09-18 15:26 | PN ---
Progress Note (short form) - Note Progress Note: still with abdominal pain Vital Signs Period Temp Pulse Resp BP Sys/Amezcua Pulse Ox Last 24 Hr 98.7 F-99.1 F 108-133 20-22 97-119/52-85 99 cor-rrr lungs clear abd soft,nt ext trace edema CBC, BMP 09/18/18 05:30 09/18/18 05:30 Microbiology 09/16/18 15:45 Blood - Peripheral Venous Blood Culture - Preliminary NO GROWTH OBTAINED AFTER 48 HOURS, INCUBATION TO CONTINUE FOR 3 DAYS. 09/16/18 20:00 Urine - Urine Clean Catch Urine Culture - Final 09/16/18 14:46 Blood - Peripheral Venous Blood Culture - Preliminary Staphylococcus Latex Coag Pos a/p colitis- ?ischemic, ?infectious- continue zosyn check cdiff add flagyl positive blood culture! repeat today start vancomycin recent diagnosis AML d/w daughters at bedside Problem List - Problems (1) Abdominal pain Code(s): R10.9 - UNSPECIFIED ABDOMINAL PAIN Qualifiers: Abdominal location: unspecified location Qualified Code(s): R10.9 - Unspecified abdominal pain (2) Atrial fibrillation with RVR Code(s): I48.91 - UNSPECIFIED ATRIAL FIBRILLATION (3) AML (acute myeloblastic leukemia) Code(s): C92.00 - ACUTE MYELOBLASTIC LEUKEMIA, NOT HAVING ACHIEVED REMISSION
[2018-09-18] MEDS: VANCOMYCIN 1 GRAM (PRE-DOCKED) 1,000 MG/250 ML BAG IVPB SCH (16:00)
[2018-09-18] MEDS ORDERED: dilTIAZem HCL 50 MG/10 ML - 10 ML VIAL IVPUSH ONE ×2 (21:05→21:13)
[2018-09-18] MEDS ORDERED: LORazepam 2 MG/ML SDV VIAL IVPUSH ONE (21:05)
[2018-09-18] MEDS ORDERED: ENOXAPARIN NA (PORCINE) 80 MG/0.8 ML DISP.SYRIN SQ ONE (21:06)
[2018-09-18] MEDS ORDERED: LORazepam 2 MG/ML SDV VIAL ONE (21:10)
--- NOTE | 2018-09-18 21:12 | HOSP ---
Physical Examination Vital Signs: Vital Signs Temperature 98.6 F 09/18/18 12:00 Pulse Rate 96 H 09/18/18 12:00 Respiratory Rate 22 H 09/18/18 12:00 Blood Pressure 122/62 09/18/18 12:00 O2 Sat by Pulse Oximetry (%) 97 09/18/18 09:00 Labs: CBC, BMP 09/18/18 05:30 09/18/18 05:30 Hospitalist Encounter Assessment: Called to evaluate patient for tachycardia. On arrival, HR 170-180, normotensive at 140/86. SpO2 99% on 4L O2 via nasal cannula (90% on room air). RR 30. Briefly, patient was admitted to telemetry on cardizem drip for Afib (observed on monitor but not captured in 12 leads which have shown sinus tach with PACs). She has since been transitioned to Cardizem 120 CD, which she received today. She has a new diagnosis of AML of which she is not aware. 12 lead EKG obtained with narrow complex, irregular tachycardia at 176bpm. P waves are visible. Patient in moderate distress with tachypnea, appears anxious. Scattered wheezes and poor air entry bilaterally. Very tachycardic with irregular rhythm. 10mg diltiazem IVP given. Gtt re-started. Lovenox 1mg/kg sq given as high suspicion for PE. Send trop, BNP, electrolytes including Mg (1.4 earlier today). NRB placed briefly but patient unable to tolerate. Will CTA chest to r/o PE when stable. Discussed with Dr. Day and Dr. Pozo, covering telegraph repeater installer. Dr. Pozo reviewed EKG and suspects atrial tachycardia. Agrees with cardizem drip, recommends metoprolol 50mg po q6-8h (add 5mg IVP if needed). Can consider digoxin if ineffective. Mg 1.3 - give 2g IVPB Patient complaining of chest pain - morphine 2mg IVP ordered CXR appears unchanged from 2 days prior with right hilar fullness/prominent mediastinum She remains tachypneic at 30 RR/min and I am concerned that she will not be able to maintain this Critical care consulted and family meeting held. After lengthy discussion, healthcare proxy and other family members agree that they do not wish to pursue intubation or ICU transfer. Will give morphine 2mg q1h prn to alleviate air hunger. Family understands that prognosis is very poor. Please microblog "[employer] Advisor" with questions until 9am
[2018-09-18] MEDS ORDERED: DILTIAZEM INJECTION 125 MG in SODIUM CHLORIDE 100 ML IVPB SCH ×2 (21:15→21:41)
[2018-09-18] MEDS ORDERED: METOPROLOL TARTRATE 25 MG TABLET (FP) PO ONE (21:41)
[2018-09-18 21:56] LABS: MAGNESIUM 1.3 mg/dL (1.8-2.4); N-TERMINAL BNP 2651.9 pg/ml (5-450)
[2018-09-18] MEDS ORDERED: MORPHINE SULFATE 2 MG/ML VIAL IVPUSH ONE (22:11)
[2018-09-18] MEDS: METOPROLOL TARTRATE 50 MG TABLET (FP) PO SCH (22:36)
[2018-09-18 22:46] LABS: ANION GAP 12 MMOL/L (8-16); BLOOD UREA NITROGEN 22 mg/dL (7-18); CHLORIDE 104 mmol/L (98-107); CO2 23 mmol/L (21-32); CREATININE 0.8 mg/dL (0.55-1.3); GLUCOSE,RANDOM 154 mg/dL (74-106); POTASSIUM 3.7 mmol/L (3.5-5.1); SODIUM 139 mmol/L (136-145)
[2018-09-18] MEDS ORDERED: METOPROLOL TARTRATE 5 MG/5 ML VIAL IVPUSH ONE (22:49)
[2018-09-18 22:55] LABS: CALCIUM 6.3 mg/dL (8.5-10.1)
[2018-09-18] MEDS ORDERED: SCOPOLAMINE HYDROBROMIDE 1 PATCH PATCH.TD72 TD SCH (23:00)
[2018-09-19] MEDS ORDERED: PIPERACILLIN/TAZOBACTAM 3.375 GM VIAL IVPB ONE ×3 (01:17→16:30)
[2018-09-19] MEDS ORDERED: DEXTROSE 5%-WATER - 50 ML IVPB ONE ×3 (01:17→16:30)
[2018-09-19] MEDS: MORPHINE SULFATE 2 MG/ML VIAL IVPUSH PRN ×2 (01:44→12:02)
[2018-09-19] MEDS: PIPERACILLIN/TAZOB 3.375 GM 3.375 GM in DEXTROSE 5%-WATER - 50 ML IVPB SCH ×3 (01:45→17:38)
[2018-09-19] MEDS: DILTIAZEM INJECTION 125 MG in SODIUM CHLORIDE 100 ML IVPB SCH ×4 (06:07→23:37)
[2018-09-19] MEDS: METOPROLOL TARTRATE 50 MG TABLET (FP) PO SCH ×3 (06:07→22:04)
[2018-09-19 08:10] LABS: HEMATOCRIT 25.2 % (32.4-45.2); HEMOGLOBIN 7.8 GM/dL (10.7-15.3); MCH 26.7 pg (25.7-33.7); MCHC 31.1 g/dl (32.0-36.0); MEAN CELL VOLUME 85.8 fl (80-96); MEAN PLT VOLUME 8.9 fl (7.5-11.1); PLATELET COUNT 94 K/MM3 (134-434); RBC 2.94 M/mm3 (3.60-5.2); RDW 17.6 % (11.6-15.6); WHITE BLOOD COUNT 12.2 K/mm3 (4.0-10.0)
[2018-09-19 09:00] LABS: ALBUMIN 2.3 g/dl (3.4-5.0); ALK PHOS 52 U/L (45-117); ANION GAP 10 MMOL/L (8-16); BILIRUBIN,TOTAL 0.5 mg/dL (0.2-1); BLOOD UREA NITROGEN 25 mg/dL (7-18); CHLORIDE 106 mmol/L (98-107); CO2 24 mmol/L (21-32); GLUCOSE,RANDOM 129 mg/dL (74-106); MAGNESIUM 2.3 mg/dL (1.8-2.4); PHOSPHOROUS 3.9 mg/dL (2.5-4.9); POTASSIUM 3.6 mmol/L (3.5-5.1); SGOT/AST 11 U/L (15-37); SGPT/ALT 16 U/L (13-61); SODIUM 141 mmol/L (136-145); TOT PROT 5.2 g/dl (6.4-8.2)
[2018-09-19 09:09] LABS: CALCIUM 6.2 mg/dL (8.5-10.1)
--- NOTE | 2018-09-19 09:53 | PN ---
Progress Note, Physician History of Present Illness: PULMONARY EARLIER EVENTS NOTED,CURRENTLY FEELING BETTER,LESS DYSPNEIC - Current Medication List Current Medications: Active Medications Acetaminophen (Ofirmev Injection -) 1,000 mg IVPB Q6H PRN PRN Reason: PAIN LEVEL 6-10 Last Admin: 09/18/18 15:07 Dose: 1,000 mg Diltiazem HCl (Cardizem Cd -) 120 mg PO DAILY LILIANE Last Admin: 09/18/18 14:54 Dose: 120 mg Piperacillin Sod/Tazobactam (Sod 3.375 gm/ Dextrose) 50 mls @ 100 mls/hr IVPB Q8H-IV LILIANE; Protocol Last Admin: 09/19/18 01:45 Dose: 100 mls/hr Vancomycin HCl (Vancomycin (Pre-Docked)) 1,000 mg in 250 mls @ 166.667 mls/hr IVPB Q24H LILIANE; Protocol Last Admin: 09/18/18 16:00 Dose: 166.667 mls/hr Metronidazole (Flagyl 500mg Premixed Ivpb -) 500 mg in 100 mls @ 100 mls/hr IVPB Q8H-IV LILIANE Last Admin: 09/19/18 02:57 Dose: 100 mls/hr Diltiazem HCl 125 mg/ Sodium (Chloride) 125 mls @ 20 mls/hr IVPB TITR LILIANE; Protocol Last Admin: 09/19/18 06:07 Dose: 15 mg/hr, 15 mls/hr Levalbuterol HCl (Xopenex) 0.31 mg IH Q8H PRN PRN Reason: ASTHMA Last Admin: 09/18/18 18:04 Dose: 0.31 mg Metoprolol Tartrate (Lopressor -) 50 mg PO TID LILIANE Last Admin: 09/19/18 06:07 Dose: 50 mg Morphine Sulfate (Morphine Sulfate) 2 mg IVPUSH Q1H PRN PRN Reason: Pain and dyspnea Last Admin: 09/19/18 01:44 Dose: 2 mg Scopolamine HBr (Transderm-Scop -) 1 patch TD Q72H LILIANE Last Admin: 09/18/18 23:32 Dose: 1 patch Simethicone (Mylicon -) 80 mg PO Q4H PRN PRN Reason: GAS Last Admin: 09/18/18 20:35 Dose: 80 mg - Objective Vital Signs: Vital Signs Temperature 98.2 F 09/19/18 06:00 Pulse Rate 106 H 09/19/18 06:07 Respiratory Rate 20 09/19/18 06:00 Blood Pressure 109/49 L 09/19/18 06:07 O2 Sat by Pulse Oximetry (%) 98 09/18/18 21:00 Constitutional: Yes: Well Nourished, Calm Eyes: Yes: WNL HENT: Yes: WNL Neck: Yes: WNL Cardiovascular: Yes: Regular Rate and Rhythm, S1, S2 Respiratory: Yes: Wheezes (SCATTERED MARLON WHEEZES) Gastrointestinal: Yes: Normal Bowel Sounds, Soft Extremities: Yes: WNL Edema: No Labs: CBC, BMP 09/19/18 07:30 09/19/18 07:30 INR, PTT INR 1.58 (0.83-1.09) H 09/16/18 14:41 Problem List - Problems (1) Dyspnea Code(s): R06.00 - DYSPNEA, UNSPECIFIED (2) AML (acute myeloblastic leukemia) Code(s): C92.00 - ACUTE MYELOBLASTIC LEUKEMIA, NOT HAVING ACHIEVED REMISSION (3) Abdominal pain Code(s): R10.9 - UNSPECIFIED ABDOMINAL PAIN Qualifiers: Abdominal location: unspecified location Qualified Code(s): R10.9 - Unspecified abdominal pain (4) Acute colitis Code(s): K52.9 - NONINFECTIVE GASTROENTERITIS AND COLITIS, UNSPECIFIED (5) HLD (hyperlipidemia) Code(s): E78.5 - HYPERLIPIDEMIA, UNSPECIFIED (6) HTN (hypertension) Code(s): I10 - ESSENTIAL (PRIMARY) HYPERTENSION (7) Anemia Code(s): D64.9 - ANEMIA, UNSPECIFIED Assessment/Plan IMP ABDOMINAL PAIN SECONDARY TO ACUTE COLITIS DYSPNEA MULTIPLE FACTORS ABD PAIN,ANEMIA,TACHY-ARRHYTHMIA AML CHRONIC RUL/RML ATELECTASIS HTN ANEMIA PLAN ANALGESICS O2 RATE CONTROL PER CARDIOLOGY ABX PER ID MONITOR H+H NORMAL TRANSFUSION THRESHOLD MEDROL X 24HRS 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 FENG Problem List - Problems (1) Dyspnea Code(s): R06.00 - DYSPNEA, UNSPECIFIED (2) AML (acute myeloblastic leukemia) Code(s): C92.00 - ACUTE MYELOBLASTIC LEUKEMIA, NOT HAVING ACHIEVED REMISSION (3) Abdominal pain Code(s): R10.9 - UNSPECIFIED ABDOMINAL PAIN Qualifiers: Abdominal location: unspecified location Qualified Code(s): R10.9 - Unspecified abdominal pain (4) Acute colitis Code(s): K52.9 - NONINFECTIVE GASTROENTERITIS AND COLITIS, UNSPECIFIED (5) HLD (hyperlipidemia) Code(s): E78.5 - HYPERLIPIDEMIA, UNSPECIFIED (6) HTN (hypertension) Code(s): I10 - ESSENTIAL (PRIMARY) HYPERTENSION (7) Anemia Code(s): D64.9 - ANEMIA, UNSPECIFIED
[2018-09-19] MEDS: LEVALBUTEROL HCL 0.31 MG/3 ML VIAL.NEB IH PRN (09:54)
--- NOTE | 2018-09-19 10:23 | PN ---
Progress Note, Physician History of Present Illness: Events of yesterday noted Feeling better and reports less abdominal pain and BM this am pasty not diarrhea - Current Medication List Current Medications: Active Medications Acetaminophen (Ofirmev Injection -) 1,000 mg IVPB Q6H PRN PRN Reason: PAIN LEVEL 6-10 Last Admin: 09/18/18 15:07 Dose: 1,000 mg Diltiazem HCl (Cardizem Cd -) 120 mg PO DAILY LILIANE Last Admin: 09/18/18 14:54 Dose: 120 mg Piperacillin Sod/Tazobactam (Sod 3.375 gm/ Dextrose) 50 mls @ 100 mls/hr IVPB Q8H-IV LILIANE; Protocol Last Admin: 09/19/18 01:45 Dose: 100 mls/hr Vancomycin HCl (Vancomycin (Pre-Docked)) 1,000 mg in 250 mls @ 166.667 mls/hr IVPB Q24H LILIANE; Protocol Last Admin: 09/18/18 16:00 Dose: 166.667 mls/hr Metronidazole (Flagyl 500mg Premixed Ivpb -) 500 mg in 100 mls @ 100 mls/hr IVPB Q8H-IV LILIANE Last Admin: 09/19/18 02:57 Dose: 100 mls/hr Diltiazem HCl 125 mg/ Sodium (Chloride) 125 mls @ 20 mls/hr IVPB TITR LILIANE; Protocol Last Admin: 09/19/18 06:07 Dose: 15 mg/hr, 15 mls/hr Levalbuterol HCl (Xopenex) 0.31 mg IH Q8H PRN PRN Reason: ASTHMA Last Admin: 09/19/18 09:54 Dose: 0.31 mg Methylprednisolone Sodium Succinate (Solu-Medrol -) 40 mg IVPUSH Q8H-IV LILIANE Metoprolol Tartrate (Lopressor -) 50 mg PO TID LILIANE Last Admin: 09/19/18 06:07 Dose: 50 mg Morphine Sulfate (Morphine Sulfate) 2 mg IVPUSH Q1H PRN PRN Reason: Pain and dyspnea Last Admin: 09/19/18 01:44 Dose: 2 mg Scopolamine HBr (Transderm-Scop -) 1 patch TD Q72H LILIANE Last Admin: 09/18/18 23:32 Dose: 1 patch Simethicone (Mylicon -) 80 mg PO Q4H PRN PRN Reason: GAS Last Admin: 09/18/18 20:35 Dose: 80 mg - Objective Vital Signs: Vital Signs Temperature 98.2 F 09/19/18 06:00 Pulse Rate 106 H 09/19/18 06:07 Respiratory Rate 20 09/19/18 06:00 Blood Pressure 109/49 L 09/19/18 06:07 O2 Sat by Pulse Oximetry (%) 98 09/18/18 21:00 Labs: CBC, BMP 09/19/18 07:30 09/19/18 07:30 INR, PTT INR 1.58 (0.83-1.09) H 09/16/18 14:41 Problem List - Problems (1) Abdominal pain Code(s): R10.9 - UNSPECIFIED ABDOMINAL PAIN Qualifiers: Abdominal location: unspecified location Qualified Code(s): R10.9 - Unspecified abdominal pain Assessment/Plan Colitis Abdominal exam improved Continue antibiotics
--- NOTE | 2018-09-19 10:40 | PN ---
Progress Note, Physician Chief Complaint: AWAKE ALERT DAUGHTER BEDSIDE EVENTS OVERNIGHT WITH TACHYCARDIA AND RESP DISTRESS NOTED - Current Medication List Current Medications: Active Medications Acetaminophen (Ofirmev Injection -) 1,000 mg IVPB Q6H PRN PRN Reason: PAIN LEVEL 6-10 Last Admin: 09/18/18 15:07 Dose: 1,000 mg Diltiazem HCl (Cardizem Cd -) 120 mg PO DAILY LILIANE Last Admin: 09/18/18 14:54 Dose: 120 mg Piperacillin Sod/Tazobactam (Sod 3.375 gm/ Dextrose) 50 mls @ 100 mls/hr IVPB Q8H-IV LILIANE; Protocol Last Admin: 09/19/18 01:45 Dose: 100 mls/hr Vancomycin HCl (Vancomycin (Pre-Docked)) 1,000 mg in 250 mls @ 166.667 mls/hr IVPB Q24H LILIANE; Protocol Last Admin: 09/18/18 16:00 Dose: 166.667 mls/hr Metronidazole (Flagyl 500mg Premixed Ivpb -) 500 mg in 100 mls @ 100 mls/hr IVPB Q8H-IV LILIANE Last Admin: 09/19/18 02:57 Dose: 100 mls/hr Diltiazem HCl 125 mg/ Sodium (Chloride) 125 mls @ 20 mls/hr IVPB TITR LILIANE; Protocol Last Admin: 09/19/18 06:07 Dose: 15 mg/hr, 15 mls/hr Levalbuterol HCl (Xopenex) 0.31 mg IH Q8H PRN PRN Reason: ASTHMA Last Admin: 09/19/18 09:54 Dose: 0.31 mg Methylprednisolone Sodium Succinate (Solu-Medrol -) 40 mg IVPUSH Q8H-IV LILIANE Metoprolol Tartrate (Lopressor -) 50 mg PO TID LILIANE Last Admin: 09/19/18 06:07 Dose: 50 mg Morphine Sulfate (Morphine Sulfate) 2 mg IVPUSH Q1H PRN PRN Reason: Pain and dyspnea Last Admin: 09/19/18 01:44 Dose: 2 mg Scopolamine HBr (Transderm-Scop -) 1 patch TD Q72H LILIANE Last Admin: 09/18/18 23:32 Dose: 1 patch Simethicone (Mylicon -) 80 mg PO Q4H PRN PRN Reason: GAS Last Admin: 09/18/18 20:35 Dose: 80 mg - Objective Vital Signs: Vital Signs Temperature 98.2 F 09/19/18 06:00 Pulse Rate 106 H 09/19/18 06:07 Respiratory Rate 20 09/19/18 06:00 Blood Pressure 109/49 L 09/19/18 06:07 O2 Sat by Pulse Oximetry (%) 98 09/18/18 21:00 Constitutional: Yes: Mild Distress Eyes: Yes: WNL HENT: Yes: WNL Neck: Yes: WNL Cardiovascular: Yes: Tachycardia Respiratory: Yes: Cough, On Nasal O2, Rhonchi Gastrointestinal: Yes: Soft, Tenderness Genitourinary: Yes: Incontinence Musculoskeletal: Yes: Muscle Weakness Extremities: Yes: WNL Edema: Yes Edema: LLE: Trace, RLE: Trace Peripheral Pulses WNL: Yes Integumentary: Yes: Bruising, Other Wound/Incision: Yes: Clean/Dry Neurological: Yes: Confusion ...Motor Strength: LLE, RLE Psychiatric: Yes: Other Labs: CBC, BMP 09/19/18 07:30 09/19/18 07:30 INR, PTT INR 1.58 (0.83-1.09) H 09/16/18 14:41 Problem List - Problems (1) Acute colitis Code(s): K52.9 - NONINFECTIVE GASTROENTERITIS AND COLITIS, UNSPECIFIED (2) AML (acute myeloblastic leukemia) Code(s): C92.00 - ACUTE MYELOBLASTIC LEUKEMIA, NOT HAVING ACHIEVED REMISSION (3) Abdominal pain Code(s): R10.9 - UNSPECIFIED ABDOMINAL PAIN Qualifiers: Abdominal location: unspecified location Qualified Code(s): R10.9 - Unspecified abdominal pain (4) Atrial fibrillation with RVR Code(s): I48.91 - UNSPECIFIED ATRIAL FIBRILLATION (5) HLD (hyperlipidemia) Code(s): E78.5 - HYPERLIPIDEMIA, UNSPECIFIED (6) HTN (hypertension) Code(s): I10 - ESSENTIAL (PRIMARY) HYPERTENSION Assessment/Plan CONTINUE IV ABX ID/SURGERY EVAL APPRECIATED PAIN CONTROL IV TYLENOL PREFERRED OVER MORPHINE 02 SUPPORT DOUBT THIS IS A P.E. HOWEVER WILL MONITOR CLOSELY PATIENT IS DNR SOFT DIET DYSPHAGIA PRECAUTIONS
[2018-09-19] MEDS: methylPREDNISolone NA SUCC 40 MG/1 ML VIAL IVPUSH SCH ×2 (10:51→17:38)
--- NOTE | 2018-09-19 12:35 | PN ---
Progress Note, Physician Chief Complaint: Shortness of breath History of Present Illness: 88 year old female with a pmhx of htn, hld, amyloidosis, chronic sob, remote h/ o GI bleed, and AML who presents with diffuse abdominal pain since night prior to admisison. No chest pain or palpitations. +SOB. CT scan with colitis. WBC 14 EKG: sinus tachycardia with pac's BNP elevated. - Current Medication List Current Medications: Active Medications Acetaminophen (Ofirmev Injection -) 1,000 mg IVPB Q6H PRN PRN Reason: PAIN LEVEL 6-10 Last Admin: 09/18/18 15:07 Dose: 1,000 mg Diltiazem HCl (Cardizem Cd -) 120 mg PO DAILY LILIANE Last Admin: 09/18/18 14:54 Dose: 120 mg Piperacillin Sod/Tazobactam (Sod 3.375 gm/ Dextrose) 50 mls @ 100 mls/hr IVPB Q8H-IV LILIANE; Protocol Last Admin: 09/19/18 10:51 Dose: 100 mls/hr Vancomycin HCl (Vancomycin (Pre-Docked)) 1,000 mg in 250 mls @ 166.667 mls/hr IVPB Q24H LILIANE; Protocol Last Admin: 09/18/18 16:00 Dose: 166.667 mls/hr Metronidazole (Flagyl 500mg Premixed Ivpb -) 500 mg in 100 mls @ 100 mls/hr IVPB Q8H-IV LILIANE Last Admin: 09/19/18 10:51 Dose: 100 mls/hr Diltiazem HCl 125 mg/ Sodium (Chloride) 125 mls @ 20 mls/hr IVPB TITR LILIANE; Protocol Last Admin: 09/19/18 06:07 Dose: 15 mg/hr, 15 mls/hr Levalbuterol HCl (Xopenex) 0.31 mg IH Q8H PRN PRN Reason: ASTHMA Last Admin: 09/19/18 09:54 Dose: 0.31 mg Methylprednisolone Sodium Succinate (Solu-Medrol -) 40 mg IVPUSH Q8H-IV LILIANE Last Admin: 09/19/18 10:51 Dose: 40 mg Metoprolol Tartrate (Lopressor -) 50 mg PO TID LILIANE Last Admin: 09/19/18 06:07 Dose: 50 mg Morphine Sulfate (Morphine Sulfate) 2 mg IVPUSH Q1H PRN PRN Reason: Pain and dyspnea Last Admin: 09/19/18 12:02 Dose: 2 mg Scopolamine HBr (Transderm-Scop -) 1 patch TD Q72H LILIANE Last Admin: 09/18/18 23:32 Dose: 1 patch Simethicone (Mylicon -) 80 mg PO Q4H PRN PRN Reason: GAS Last Admin: 09/18/18 20:35 Dose: 80 mg - Objective Vital Signs: Vital Signs Temperature 98.2 F 09/19/18 06:00 Pulse Rate 106 H 09/19/18 06:07 Respiratory Rate 20 09/19/18 06:00 Blood Pressure 109/49 L 09/19/18 06:07 O2 Sat by Pulse Oximetry (%) 98 09/18/18 21:00 Constitutional: Yes: No Distress, Obese Eyes: Yes: WNL, Conjunctiva Clear HENT: Yes: WNL, Atraumatic, Normocephalic Neck: Yes: WNL, Supple Cardiovascular: Yes: WNL, Pulse Irregular, S1, S2 Respiratory: Yes: SOB, Other (Tachypneic) Gastrointestinal: Yes: WNL, Normal Bowel Sounds, Soft ...Rectal Exam: Yes: Deferred Genitourinary: Yes: WNL Musculoskeletal: Yes: WNL Edema: Yes Edema: LLE: 1+, RLE: 1+ Peripheral Pulses: Left Radial: 1+, Right Radial: 1+, Left Doralis Pedis: 1+, Right Dorsalis Pedis: 1+, Left Femoral: 1+, Right Femoral: 1+ Integumentary: Yes: WNL Neurological: Yes: WNL, Alert, Oriented Psychiatric: Yes: WNL Labs: CBC, BMP 09/19/18 07:30 09/19/18 07:30 INR, PTT INR 1.58 (0.83-1.09) H 09/16/18 14:41 Assessment/Plan 88 year old female with a pmhx of htn, hld, amyloidosis, chronic sob, remote h/ o GI bleed, and AML who presents with diffuse abdominal pain since night prior to admisison. No chest pain or palpitations. +SOB. CT scan with colitis. WBC 14 EKG: sinus tachycardia with pac's BNP elevated. Telemetry showing normal sinus rhythm with frequent APCs. No atrial fibrillation documented so far. Would start Lasix 40 mg IV twice daily. The patient is fluid overloaded. Continue the other medications as currently. Low-sodium diet and fluid restrictions. No need for further cardiac workup at this point.
--- NOTE | 2018-09-19 12:41 | EKG ---
Test Reason : Blood Pressure : / mmHG Vent. Rate : 176 BPM Atrial Rate : 176 BPM P-R Int : 120 ms QRS Dur : 070 ms QT Int : 256 ms P-R-T Axes : 049 003 052 degrees QTc Int : 438 ms POOR DATA QUALITY, INTERPRETATION MAY BE ADVERSELY AFFECTED SINUS TACHYCARDIA WITH PREMATURE ATRIAL COMPLEXES WHEN COMPARED WITH ECG OF 17-SEP-2018 06:05, VENT. RATE HAS INCREASED BY 79 BPM Confirmed by David Todd ([id number]) on 09/19/2018 12:40:49 PM Referred By: Confirmed By:David Todd
[2018-09-19] MEDS: VANCOMYCIN 1 GRAM (PRE-DOCKED) 1,000 MG/250 ML BAG IVPB SCH (14:37)
--- NOTE | 2018-09-19 17:38 | CON.GI ---
Consult Consult Specialty:: GI - History of Present Illness History of Present Illness: Saw the patient 7 am in ER Sep 17 her daughter Julien was present. $ week history of abdominal pain associated with consitpation. Sep 16, she developed severe abdominal pain. CT revealed inflammation of the right colon. Overnight she received IV hydrationa and antibiotics The morning of September 17 her abdominal pain improved. Her hospital stay was complicated by CHF and tachycardia and progressive anemia. There were no attempts to transfuse because of underlying CHF This evening , she was resting comfortably, She just reveived a dose of morphine - Past Medical History Cardio/Vascular: Yes: HTN, Hyperlipdemia ...: No Additional Medical History: IVC filter - Past Surgical History Past Surgical History: Yes: Cholecystectomy, Upper Endoscopy - Alcohol/Substance Use Hx Alcohol Use: No History of Substance Use: reports: None - Smoking History Smoking history: Never smoked Have you smoked in the past 12 months: No Aproximately how many cigarettes per day: 0 - Social History Usual Living Arrangement: With Child ADL: Family Assistance History of Recent Travel: No Home Medications - Allergies Allergies/Adverse Reactions: Allergies Allergy/AdvReac Type Severity Reaction Status Date / Time No Known Allergies Allergy Verified 04/23/18 22:24 - Home Medications Home Medications: Ambulatory Orders Albuterol Sulfate [Proair Hfa -] 1 - 2 inh PO PRN #0 hfa.aer.ad 09/04/13 Calcium Carbonate/Vitamin D3 [Calcium 500 + Vit D 200 Tablet] 1 each PO DAILY # 0 tablet 09/04/13 Docusate Sodium [Colace -] 100 mg PO DAILY #0 capsule 09/04/13 Folic Acid - 1 mg PO DAILY #0 tablet 09/04/13 Lansoprazole [Prevacid] 30 mg PO DAILY #0 capsule.dr 09/04/13 Losartan Potassium 50 mg PO DAILY #0 tablet 09/04/13 Metoprolol Succinate [Toprol XL -] 50 mg PO DAILY #0 tab.sr.24h 09/04/13 traMADol HCL [Ultram -] 50 mg PO Q8H PRN #0 tablet 09/04/13 Cyanocobalamin [Vitamin B12 -] 1,000 mcg PO DAILY 09/16/18 Hydroxyurea [Hydrea -] 500 mg PO BID 09/16/18 Hyoscyamine Sulfate [Levsin] 0.375 mg PO ASDIR PRN 09/16/18 Meclizine HCl [Antivert -] 25 mg PO TID PRN 09/16/18 Ondansetron [Zofran Odt -] 4 mg SL TID PRN 09/16/18 Physical Exam-GI Vital Signs: Vital Signs Temperature 98.3 F 09/19/18 14:00 Pulse Rate 96 H 09/19/18 14:45 Respiratory Rate 18 09/19/18 14:00 Blood Pressure 100/60 09/19/18 14:45 O2 Sat by Pulse Oximetry (%) 97 09/19/18 09:00 Constitutional: Yes: Well Nourished Eyes: Yes: Conjunctiva Clear HENT: Yes: Atraumatic Neck: Yes: Supple Respiratory: Yes: CTA Bilaterally ...Palpate: Yes: Soft. No: Firm/Rigid, Guarding, Hepatomegaly, Mass, Pulsatile Mass, Splenomegaly, Tenderness Labs: CBC, BMP 09/19/18 07:30 09/19/18 07:30 INR, PTT INR 1.58 (0.83-1.09) H 09/16/18 14:41 Imaging - Results Cat Scan: Report Reviewed Problem List - Problems (1) Abdominal pain Assessment/Plan: most likely secondary to ischemic colitis most likely resolved R>consider to transfuse 1 unit of PRBC keep well hydrated Code(s): R10.9 - UNSPECIFIED ABDOMINAL PAIN Qualifiers: Abdominal location: unspecified location Qualified Code(s): R10.9 - Unspecified abdominal pain
--- NOTE | 2018-09-19 18:35 | PN ---
Progress Note (short form) - Note Progress Note: CKD Anemia chf hypocalcemia hypomagnesemia Current Medications Acetaminophen (Ofirmev Injection -) 1,000 mg IVPB Q6H PRN PRN Reason: PAIN LEVEL 6-10 Last Admin: 09/18/18 15:07 Dose: 1,000 mg Calcium Gluconate (Calcium Gluconate 10% -) 1,000 mg IVPB ONCE ONE Stop: 09/19/18 18:29 Diltiazem HCl (Cardizem Cd -) 120 mg PO DAILY LILIANE Last Admin: 09/18/18 14:54 Dose: 120 mg Furosemide (Lasix Injection -) 40 mg IVPUSH BIDLASIX LILIANE Piperacillin Sod/Tazobactam (Sod 3.375 gm/ Dextrose) 50 mls @ 100 mls/hr IVPB Q8H-IV LILIANE; Protocol Last Admin: 09/19/18 17:38 Dose: 100 mls/hr Vancomycin HCl (Vancomycin (Pre-Docked)) 1,000 mg in 250 mls @ 166.667 mls/hr IVPB Q24H LILIANE; Protocol Last Admin: 09/19/18 14:37 Dose: 166.667 mls/hr Diltiazem HCl 125 mg/ Sodium (Chloride) 125 mls @ 20 mls/hr IVPB TITR LILIANE; Protocol Last Admin: 09/19/18 14:45 Dose: 15 mg/hr, 15 mls/hr Levalbuterol HCl (Xopenex) 0.31 mg IH Q8H PRN PRN Reason: ASTHMA Last Admin: 09/19/18 09:54 Dose: 0.31 mg Methylprednisolone Sodium Succinate (Solu-Medrol -) 40 mg IVPUSH Q8H-IV LILIANE Last Admin: 09/19/18 17:38 Dose: 40 mg Metoprolol Tartrate (Lopressor -) 50 mg PO TID LILIANE Last Admin: 09/19/18 14:33 Dose: 50 mg Morphine Sulfate (Morphine Sulfate) 2 mg IVPUSH Q1H PRN PRN Reason: Pain and dyspnea Last Admin: 09/19/18 12:02 Dose: 2 mg Scopolamine HBr (Transderm-Scop -) 1 patch TD Q72H LILIANE Last Admin: 09/18/18 23:32 Dose: 1 patch Simethicone (Mylicon -) 80 mg PO Q4H PRN PRN Reason: GAS Last Admin: 09/18/18 20:35 Dose: 80 mg Last Vital Signs Temp Pulse Resp BP Pulse Ox 98.3 F 96 H 18 100/60 97 09/19/18 14:00 09/19/18 14:45 09/19/18 14:00 09/19/18 14:45 09/19/18 09:00 Lungs clear Heart reg Ext no edema CBC, BMP 09/18/18 05:30 09/18/18 05:30 hypokalemia- replaced hypocalcemia chf plan will replace calcium today f/u labs tomorrow
[2018-09-19] MEDS ORDERED: CALCIUM GLUCONATE 10% - 1,000 MG/10 ML VIAL IVPB ONE (18:45)
[2018-09-20] MEDS ORDERED: PIPERACILLIN/TAZOBACTAM 3.375 GM VIAL IVPB ONE ×2 (00:51→09:09)
[2018-09-20] MEDS ORDERED: DEXTROSE 5%-WATER - 50 ML IVPB ONE ×2 (00:51→09:10)
[2018-09-20] MEDS: methylPREDNISolone NA SUCC 40 MG/1 ML VIAL IVPUSH SCH ×3 (01:11→18:12)
[2018-09-20] MEDS: PIPERACILLIN/TAZOB 3.375 GM 3.375 GM in DEXTROSE 5%-WATER - 50 ML IVPB SCH ×2 (01:13→10:36)
[2018-09-20] MEDS: METOPROLOL TARTRATE 50 MG TABLET (FP) PO SCH ×3 (06:32→21:32)
[2018-09-20] MEDS: FUROSEMIDE 40 MG/4 ML INJECTABLE VIAL IVPUSH SCH ×2 (06:32→14:00)
[2018-09-20 06:58] LABS: HEMATOCRIT 25.6 % (32.4-45.2); MCH 26.9 pg (25.7-33.7); MCHC 31.4 g/dl (32.0-36.0); MEAN CELL VOLUME 85.6 fl (80-96); MEAN PLT VOLUME 9.3 fl (7.5-11.1); PLATELET COUNT 96 K/MM3 (134-434); RBC 2.99 M/mm3 (3.60-5.2); RDW 18.3 % (11.6-15.6)
[2018-09-20 07:35] LABS: ALBUMIN 2.2 g/dl (3.4-5.0); ALK PHOS 43 U/L (45-117); ANION GAP 11 MMOL/L (8-16); BILIRUBIN,TOTAL 0.3 mg/dL (0.2-1); BLOOD UREA NITROGEN 30 mg/dL (7-18); CHLORIDE 104 mmol/L (98-107); CO2 23 mmol/L (21-32); GLUCOSE,RANDOM 183 mg/dL (74-106); MAGNESIUM 2.2 mg/dL (1.8-2.4); POTASSIUM 3.5 mmol/L (3.5-5.1); SGOT/AST 6 U/L (15-37); SGPT/ALT 13 U/L (13-61); SODIUM 139 mmol/L (136-145); TOT PROT 5.2 g/dl (6.4-8.2)
--- NOTE | 2018-09-20 08:59 | PN ---
Progress Note, Physician Chief Complaint: AWAKE LETHARGIC - Current Medication List Current Medications: Active Medications Acetaminophen (Ofirmev Injection -) 1,000 mg IVPB Q6H PRN PRN Reason: PAIN LEVEL 6-10 Last Admin: 09/18/18 15:07 Dose: 1,000 mg Diltiazem HCl (Cardizem Cd -) 120 mg PO DAILY LILIANE Last Admin: 09/18/18 14:54 Dose: 120 mg Furosemide (Lasix Injection -) 40 mg IVPUSH BIDLASIX LILIANE Last Admin: 09/20/18 06:32 Dose: 40 mg Piperacillin Sod/Tazobactam (Sod 3.375 gm/ Dextrose) 50 mls @ 100 mls/hr IVPB Q8H-IV LILIANE; Protocol Last Admin: 09/20/18 01:13 Dose: 100 mls/hr Vancomycin HCl (Vancomycin (Pre-Docked)) 1,000 mg in 250 mls @ 166.667 mls/hr IVPB Q24H LILIANE; Protocol Last Admin: 09/19/18 14:37 Dose: 166.667 mls/hr Diltiazem HCl 125 mg/ Sodium (Chloride) 125 mls @ 20 mls/hr IVPB TITR LILIANE; Protocol Last Admin: 09/19/18 23:37 Dose: 5 mg/hr, 5 mls/hr Levalbuterol HCl (Xopenex) 0.31 mg IH Q8H PRN PRN Reason: ASTHMA Last Admin: 09/19/18 09:54 Dose: 0.31 mg Methylprednisolone Sodium Succinate (Solu-Medrol -) 40 mg IVPUSH Q8H-IV LILIANE Last Admin: 09/20/18 01:11 Dose: 40 mg Metoprolol Tartrate (Lopressor -) 50 mg PO TID LILIANE Last Admin: 09/20/18 06:32 Dose: 50 mg Morphine Sulfate (Morphine Sulfate) 2 mg IVPUSH Q1H PRN PRN Reason: Pain and dyspnea Last Admin: 09/19/18 12:02 Dose: 2 mg Scopolamine HBr (Transderm-Scop -) 1 patch TD Q72H LILIANE Last Admin: 09/18/18 23:32 Dose: 1 patch Simethicone (Mylicon -) 80 mg PO Q4H PRN PRN Reason: GAS Last Admin: 11/17/18 20:35 Dose: 80 mg - Objective Vital Signs: Vital Signs Temperature 97.9 F 09/20/18 05:30 Pulse Rate 97 H 09/20/18 05:30 Respiratory Rate 21 H 09/20/18 05:30 Blood Pressure 99/54 L 09/20/18 05:30 O2 Sat by Pulse Oximetry (%) 100 09/19/18 21:00 Constitutional: Yes: Mild Distress Cardiovascular: Yes: Tachycardia. No: Pulse Irregular Respiratory: Yes: On Nasal O2 Gastrointestinal: Yes: Tenderness Genitourinary: Yes: Incontinence Musculoskeletal: Yes: Muscle Weakness Extremities: Yes: Other Edema: No Integumentary: Yes: WNL Labs: CBC, BMP 09/20/18 05:30 09/20/18 05:30 INR, PTT INR 1.58 (0.83-1.09) H 09/16/18 14:41 Problem List - Problems (1) Acute colitis Code(s): K52.9 - NONINFECTIVE GASTROENTERITIS AND COLITIS, UNSPECIFIED (2) AML (acute myeloblastic leukemia) Code(s): C92.00 - ACUTE MYELOBLASTIC LEUKEMIA, NOT HAVING ACHIEVED REMISSION (3) Abdominal pain Code(s): R10.9 - UNSPECIFIED ABDOMINAL PAIN Qualifiers: Abdominal location: unspecified location Qualified Code(s): R10.9 - Unspecified abdominal pain (4) Atrial fibrillation with RVR Code(s): I48.91 - UNSPECIFIED ATRIAL FIBRILLATION (5) HLD (hyperlipidemia) Code(s): E78.5 - HYPERLIPIDEMIA, UNSPECIFIED (6) HTN (hypertension) Code(s): I10 - ESSENTIAL (PRIMARY) HYPERTENSION Assessment/Plan FAMILY HAS OPTED FOR HOSPICE CARE APPROVED FOR HOME HOSPICE MORPHINE IV PRN WILL DC HOME WITH DURAGESIC PATCH CHANGE TO PO CARDIZEM WHEN READY
[2018-09-20 09:25] LABS: CALCIUM 6.3 mg/dL (8.5-10.1)
[2018-09-20] MEDS ORDERED: IRON SUCROSE INJECTION 200 MG in SODIUM CHLORIDE 90 ML IVPB ONE (09:33)
[2018-09-20] MEDS: ACETAMINOPHEN 1000 MG/100 ML VIAL (NON FORMULARY) IVPB PRN (10:31)
--- NOTE | 2018-09-20 11:01 | PN ---
Progress Note, Physician History of Present Illness: PULMONARY ALERT,FEELING BETTER,LESS DYSPNEIC - Current Medication List Current Medications: Active Medications Acetaminophen (Ofirmev Injection -) 1,000 mg IVPB Q6H PRN PRN Reason: PAIN LEVEL 6-10 Last Admin: 09/20/18 10:31 Dose: 1,000 mg Diltiazem HCl (Cardizem Cd -) 120 mg PO DAILY [facility] Last Admin: 09/18/18 14:54 Dose: 120 mg Furosemide (Lasix Injection -) 40 mg IVPUSH BIDLASIX [facility] Last Admin: 09/20/18 06:32 Dose: 40 mg Piperacillin Sod/Tazobactam (Sod 3.375 gm/ Dextrose) 50 mls @ 100 mls/hr IVPB Q8H-IV [facility]; Protocol Last Admin: 09/20/18 10:36 Dose: 100 mls/hr Vancomycin HCl (Vancomycin (Pre-Docked)) 1,000 mg in 250 mls @ 166.667 mls/hr IVPB Q24H [facility]; Protocol Last Admin: 09/19/18 14:37 Dose: 166.667 mls/hr Diltiazem HCl 125 mg/ Sodium (Chloride) 125 mls @ 20 mls/hr IVPB TITR [facility]; Protocol Last Admin: 09/19/18 23:37 Dose: 5 mg/hr, 5 mls/hr Levalbuterol HCl (Xopenex) 0.31 mg IH Q8H PRN PRN Reason: ASTHMA Last Admin: 09/19/18 09:54 Dose: 0.31 mg Methylprednisolone Sodium Succinate (Solu-Medrol -) 40 mg IVPUSH Q8H-IV [facility] Last Admin: 09/20/18 10:46 Dose: 40 mg Metoprolol Tartrate (Lopressor -) 50 mg PO TID [facility] Last Admin: 09/20/18 06:32 Dose: 50 mg Scopolamine HBr (Transderm-Scop -) 1 patch TD Q72H [facility] Last Admin: 09/18/18 23:32 Dose: 1 patch Simethicone (Mylicon -) 80 mg PO Q4H PRN PRN Reason: GAS Last Admin: 09/18/18 20:35 Dose: 80 mg - Objective Vital Signs: Vital Signs Temperature 97.9 F 09/20/18 05:30 Pulse Rate 97 H 09/20/18 05:30 Respiratory Rate 21 H 09/20/18 09:25 Blood Pressure 99/54 L 09/20/18 05:30 O2 Sat by Pulse Oximetry (%) 100 09/20/18 09:25 Constitutional: Yes: Well Nourished, Calm Eyes: Yes: WNL HENT: Yes: WNL Neck: Yes: WNL Cardiovascular: Yes: Regular Rate and Rhythm, S1, S2 Respiratory: Yes: Rales (BIBASAILR RALES) Gastrointestinal: Yes: Normal Bowel Sounds, Soft Extremities: Yes: WNL Edema: Yes Labs: CBC, BMP 09/20/18 05:30 09/20/18 05:30 INR, PTT INR 1.58 (0.83-1.09) H 09/16/18 14:41 Problem List - Problems (1) Dyspnea Code(s): R06.00 - DYSPNEA, UNSPECIFIED (2) AML (acute myeloblastic leukemia) Code(s): C92.00 - ACUTE MYELOBLASTIC LEUKEMIA, NOT HAVING ACHIEVED REMISSION (3) Abdominal pain Code(s): R10.9 - UNSPECIFIED ABDOMINAL PAIN Qualifiers: Abdominal location: unspecified location Qualified Code(s): R10.9 - Unspecified abdominal pain (4) Acute colitis Code(s): K52.9 - NONINFECTIVE GASTROENTERITIS AND COLITIS, UNSPECIFIED (5) HLD (hyperlipidemia) Code(s): E78.5 - HYPERLIPIDEMIA, UNSPECIFIED (6) HTN (hypertension) Code(s): I10 - ESSENTIAL (PRIMARY) HYPERTENSION (7) Anemia Code(s): D64.9 - ANEMIA, UNSPECIFIED Assessment/Plan IMP ABDOMINAL PAIN SECONDARY TO ACUTE COLITIS IMPROVING DYSPNEA MULTIPLE FACTORS ABD PAIN,ANEMIA,TACHY-ARRHYTHMIA AML CHRONIC RUL/RML ATELECTASIS HTN ANEMIA PLAN ANALGESICS O2 RATE CONTROL PER CARDIOLOGY ABX PER ID MONITOR H+H NORMAL TRANSFUSION THRESHOLD MEDROL CARDIZEM LOPRESSOR JOSE FENG Problem List - Problems (1) Dyspnea Code(s): R06.00 - DYSPNEA, UNSPECIFIED (2) AML (acute myeloblastic leukemia) Code(s): C92.00 - ACUTE MYELOBLASTIC LEUKEMIA, NOT HAVING ACHIEVED REMISSION (3) Abdominal pain Code(s): R10.9 - UNSPECIFIED ABDOMINAL PAIN Qualifiers: Abdominal location: unspecified location Qualified Code(s): R10.9 - Unspecified abdominal pain (4) Acute colitis Code(s): K52.9 - NONINFECTIVE GASTROENTERITIS AND COLITIS, UNSPECIFIED (5) HLD (hyperlipidemia) Code(s): E78.5 - HYPERLIPIDEMIA, UNSPECIFIED (6) HTN (hypertension) Code(s): I10 - ESSENTIAL (PRIMARY) HYPERTENSION (7) Anemia Code(s): D64.9 - ANEMIA, UNSPECIFIED
--- NOTE | 2018-09-20 12:18 | PN ---
Progress Note (short form) - Note Progress Note: abdominal pain resolved now that she is having BMS and constipation has resolved Vital Signs Period Temp Pulse Resp BP Sys/Amezcua Pulse Ox Last 24 Hr 97.5 F-98.3 F 84-97 18-21 92-100/44-60 100-100 cor-rrr lungs clear abd soft,nt ext no edema CBC, BMP 09/20/18 05:30 09/20/18 05:30 Microbiology 09/16/18 14:46 Blood - Peripheral Venous Blood Culture - Final Staph Hominis Sub Sp Hominis 09/16/18 15:45 Blood - Peripheral Venous Blood Culture - Preliminary NO GROWTH OBTAINED AFTER 72 HOURS, INCUBATION TO CONTINUE FOR 2 DAYS. 09/18/18 13:55 Blood - Peripheral Venous Blood Culture - Preliminary NO GROWTH OBTAINED AFTER 24 HOURS, INCUBATION TO CONTINUE FOR 4 DAYS. 09/18/18 14:10 Blood - Peripheral Venous Blood Culture - Preliminary NO GROWTH OBTAINED AFTER 24 HOURS, INCUBATION TO CONTINUE FOR 4 DAYS. 09/18/18 18:51 Stool Clostridium difficile Antigen (SANJANA) - Final 09/18/18 18:51 Stool Clostridium difficile Toxin Assay - Final 09/16/18 20:00 Urine - Urine Clean Catch Urine Culture - Final a/p colitis- ?ischemic, ?infectious- continue zosyn improved-day #5 antibioitcs will d/c zosyn and observe blood cultures isolate is contaminant- will d/c vancomycin recent diagnosis AML d/w daughters at bedside Problem List - Problems (1) Abdominal pain Code(s): R10.9 - UNSPECIFIED ABDOMINAL PAIN Qualifiers: Abdominal location: unspecified location Qualified Code(s): R10.9 - Unspecified abdominal pain (2) Atrial fibrillation with RVR Code(s): I48.91 - UNSPECIFIED ATRIAL FIBRILLATION (3) AML (acute myeloblastic leukemia) Code(s): C92.00 - ACUTE MYELOBLASTIC LEUKEMIA, NOT HAVING ACHIEVED REMISSION
--- NOTE | 2018-09-20 14:40 | PN ---
Progress Note, Physician Chief Complaint: no complaints tele nsr apcs History of Present Illness: 88 year old female with a pmhx of htn, hld, amyloidosis, chronic sob, remote h/ o GI bleed, and AML who presents with diffuse abdominal pain since night prior to admisison. No chest pain or palpitations. +SOB. CT scan with colitis. WBC 14 EKG: sinus tachycardia with pac's BNP elevated. Telemetry showing normal sinus rhythm with frequent APCs. No atrial fibrillation documented so far. - Current Medication List Current Medications: Active Medications Acetaminophen (Ofirmev Injection -) 1,000 mg IVPB Q6H PRN PRN Reason: PAIN LEVEL 6-10 Last Admin: 09/20/18 10:31 Dose: 1,000 mg Diltiazem HCl (Cardizem Cd -) 120 mg PO DAILY [facility] Last Admin: 09/18/18 14:54 Dose: 120 mg Furosemide (Lasix Injection -) 40 mg IVPUSH BIDLASIX [facility] Last Admin: 09/20/18 14:00 Dose: 40 mg Diltiazem HCl 125 mg/ Sodium (Chloride) 125 mls @ 20 mls/hr IVPB TITR [facility]; Protocol Last Admin: 09/19/18 23:37 Dose: 5 mg/hr, 5 mls/hr Levalbuterol HCl (Xopenex) 0.31 mg IH Q8H PRN PRN Reason: ASTHMA Last Admin: 09/19/18 09:54 Dose: 0.31 mg Methylprednisolone Sodium Succinate (Solu-Medrol -) 40 mg IVPUSH Q8H-IV [facility] Last Admin: 09/20/18 10:46 Dose: 40 mg Metoprolol Tartrate (Lopressor -) 50 mg PO TID [facility] Last Admin: 09/20/18 13:59 Dose: 50 mg Scopolamine HBr (Transderm-Scop -) 1 patch TD Q72H [facility] Last Admin: 09/18/18 23:32 Dose: 1 patch Simethicone (Mylicon -) 80 mg PO Q4H PRN PRN Reason: GAS Last Admin: 09/18/18 20:35 Dose: 80 mg - Objective Vital Signs: Vital Signs Temperature 97.9 F 09/20/18 05:30 Pulse Rate 97 H 09/20/18 05:30 Respiratory Rate 21 H 09/20/18 09:25 Blood Pressure 99/54 L 09/20/18 05:30 O2 Sat by Pulse Oximetry (%) 100 09/20/18 09:25 Constitutional: Yes: No Distress, Calm Eyes: Yes: Conjunctiva Clear, EOM Intact HENT: Yes: Atraumatic, Normocephalic Neck: Yes: Supple, Trachea Midline Cardiovascular: Yes: Regular Rate and Rhythm Respiratory: Yes: Rales (bilat bases) Gastrointestinal: Yes: Normal Bowel Sounds, Soft Extremities: Yes: WNL Edema: No Peripheral Pulses WNL: Yes Labs: CBC, BMP 09/20/18 05:30 09/20/18 05:30 INR, PTT INR 1.58 (0.83-1.09) H 09/16/18 14:41 Assessment/Plan 88 year old female with a pmhx of htn, hld, amyloidosis, chronic sob, remote h/ o GI bleed, and AML who presents with diffuse abdominal pain since night prior to admisison. No chest pain or palpitations. +SOB. CT scan with colitis. WBC 14 EKG: sinus tachycardia with pac's BNP elevated. Telemetry showing normal sinus rhythm with frequent APCs. No atrial fibrillation documented so far. Continue Lasix 40 mg IV twice daily. The patient is fluid overloaded. Continue the other medications as currently. Low-sodium diet and fluid restrictions. No need for further cardiac workup at this point.
--- NOTE | 2018-09-20 15:36 | PN ---
Progress Note, Physician History of Present Illness: Pt seen and examined at bedside. She is awake however appears uncomfortable. She feels that her breathing is improved. She is not complaining of abdominal pain at the moment. - Current Medication List Current Medications: Active Medications Acetaminophen (Ofirmev Injection -) 1,000 mg IVPB Q6H PRN PRN Reason: PAIN LEVEL 6-10 Last Admin: 09/20/18 10:31 Dose: 1,000 mg Diltiazem HCl (Cardizem Cd -) 120 mg PO DAILY [facility] Last Admin: 09/18/18 14:54 Dose: 120 mg Furosemide (Lasix Injection -) 40 mg IVPUSH BIDLASIX [facility] Last Admin: 09/20/18 14:00 Dose: 40 mg Diltiazem HCl 125 mg/ Sodium (Chloride) 125 mls @ 20 mls/hr IVPB TITR [facility]; Protocol Last Admin: 09/19/18 23:37 Dose: 5 mg/hr, 5 mls/hr Levalbuterol HCl (Xopenex) 0.31 mg IH Q8H PRN PRN Reason: ASTHMA Last Admin: 09/19/18 09:54 Dose: 0.31 mg Methylprednisolone Sodium Succinate (Solu-Medrol -) 40 mg IVPUSH Q8H-IV [facility] Last Admin: 09/20/18 10:46 Dose: 40 mg Metoprolol Tartrate (Lopressor -) 50 mg PO TID [facility] Last Admin: 09/20/18 13:59 Dose: 50 mg Scopolamine HBr (Transderm-Scop -) 1 patch TD Q72H [facility] Last Admin: 09/18/18 23:32 Dose: 1 patch Simethicone (Mylicon -) 80 mg PO Q4H PRN PRN Reason: GAS Last Admin: 09/18/18 20:35 Dose: 80 mg - Objective Vital Signs: Vital Signs Temperature 98.1 F 09/20/18 10:00 Pulse Rate 111 H 09/20/18 10:00 Respiratory Rate 20 09/20/18 10:00 Blood Pressure 102/55 L 09/20/18 10:00 O2 Sat by Pulse Oximetry (%) 100 09/20/18 09:25 Constitutional: Yes: Calm Eyes: Yes: Conjunctiva Clear HENT: Yes: Atraumatic Cardiovascular: Yes: S1, S2 Respiratory: Yes: On Nasal O2, Rhonchi Gastrointestinal: Yes: Soft, Abdomen, Obese Genitourinary: Yes: WNL Musculoskeletal: Yes: WNL Edema: Yes Edema: LLE: 2+, RLE: 2+ Neurological: Yes: Oriented Psychiatric: Yes: Oriented Labs: CBC, BMP 09/20/18 05:30 09/20/18 05:30 INR, PTT INR 1.58 (0.83-1.09) H 09/16/18 14:41 Problem List - Problems (1) Hypokalemia Code(s): E87.6 - HYPOKALEMIA (2) Hypocalcemia Code(s): E83.51 - HYPOCALCEMIA Assessment/Plan Current Medications Generic Name Dose Route Start Last Admin Trade Name Freq PRN Reason Stop Dose Admin Acetaminophen 1,000 mg 09/18/18 12:35 09/20/18 10:31 Ofirmev Injection - IVPB 1,000 mg Q6H PRN Administration PAIN LEVEL 6-10 Diltiazem HCl 120 mg 09/18/18 12:30 09/18/18 14:54 Cardizem Cd - PO 120 mg DAILY LILIANE Administration Furosemide 40 mg 09/20/18 06:00 09/20/18 14:00 Lasix Injection - IVPUSH 40 mg BIDLASIX LILIANE Administration Diltiazem HCl 125 mg/ Sodium 125 mls @ 20 mls/hr 09/18/18 22:52 09/19/18 23: 37 Chloride IVPB 5 mg/hr TITR LILIANE 5 mls/hr Administration Protocol 20 MG/HR Levalbuterol HCl 0.31 mg 09/18/18 09:44 09/19/18 09:54 Xopenex IH 0.31 mg Q8H PRN Administration ASTHMA Methylprednisolone Sodium Succinate 40 mg 09/19/18 10:00 09/20/18 10:46 Solu-Medrol - IVPUSH 40 mg Q8H-IV LIL[facility]E Administration Metoprolol Tartrate 50 mg 09/18/18 22:00 09/20/18 13:59 Lopressor - PO 50 mg TID LILIANE Administration Scopolamine HBr 1 patch 09/18/18 23:00 09/18/18 23:32 Transderm-Scop - TD 1 patch Q72H LIL[facility]E Administration Simethicone 80 mg 09/18/18 12:25 09/18/18 20:35 Mylicon - PO 80 mg Q4H PRN Administration GAS Impression 1. hypocalcemia 2. hypokalemia 3. AML 4. colitis 5. abd pain 6. fluid overload Plan - replace calcium - monitor lytes - potassium is improved - cont with lasix for fluid overload - discussed with family pt is likely going home tomorrow with hospice care
[2018-09-20] MEDS ORDERED: POTASSIUM CHLORIDE ORAL LIQUID 20 MEQ/15 ML PO ONE (16:00)
[2018-09-20] MEDS ORDERED: CALCITRIOL 0.25 MCG CAPSULE (FP) PO ONE (16:00)
[2018-09-20] MEDS ORDERED: CALCIUM GLUCONATE 10% - 1,000 MG/10 ML VIAL IVPB ONE (16:15)
[2018-09-20] MEDS ORDERED: morphine SULFATE 4 MG/ML VIAL ONE (17:17)
[2018-09-20] MEDS ORDERED: morphine SULFATE 4 MG/ML VIAL IVPUSH PRN (17:44)
[2018-09-20] MEDS: DILTIAZEM INJECTION 125 MG in SODIUM CHLORIDE 100 ML IVPB SCH (22:50)
[2018-09-21] MEDS: methylPREDNISolone NA SUCC 40 MG/1 ML VIAL IVPUSH SCH ×2 (01:28→11:21)
[2018-09-21] MEDS: ACETAMINOPHEN 1000 MG/100 ML VIAL (NON FORMULARY) IVPB PRN (05:14)
[2018-09-21 05:20] VITALS: TEMP 97.8
[2018-09-21] MEDS: METOPROLOL TARTRATE 50 MG TABLET (FP) PO SCH ×2 (05:21→14:03)
[2018-09-21] MEDS: FUROSEMIDE 40 MG/4 ML INJECTABLE VIAL IVPUSH SCH (06:35)
--- NOTE | 2018-09-21 08:56 | PN ---
Progress Note, Physician Chief Complaint: breathing more comfortably, lying flat tele neg History of Present Illness: 88 year old female with a pmhx of htn, hld, amyloidosis, chronic sob, remote h/ o GI bleed, and AML who presents with diffuse abdominal pain since night prior to admisison. No chest pain or palpitations. +SOB. CT scan with colitis. WBC 14 EKG: sinus tachycardia with pac's BNP elevated. Telemetry showing normal sinus rhythm with frequent APCs. No atrial fibrillation documented so far. - Current Medication List Current Medications: Active Medications Acetaminophen (Ofirmev Injection -) 1,000 mg IVPB Q6H PRN PRN Reason: PAIN LEVEL 6-10 Last Admin: 09/21/18 05:14 Dose: 1,000 mg Calcium Carbonate/Cholecalciferol (Os-Adelso 500+D -) 2 tab PO DAILY [facility] Diltiazem HCl (Cardizem Cd -) 120 mg PO DAILY [facility] Last Admin: 09/18/18 14:54 Dose: 120 mg Furosemide (Lasix Injection -) 40 mg IVPUSH BIDLASIX [facility] Last Admin: 09/21/18 06:35 Dose: 40 mg Diltiazem HCl 125 mg/ Sodium (Chloride) 125 mls @ 20 mls/hr IVPB TITR [facility]; Protocol Last Admin: 09/20/18 22:50 Dose: Not Given Levalbuterol HCl (Xopenex) 0.31 mg IH Q8H PRN PRN Reason: ASTHMA Last Admin: 09/19/18 09:54 Dose: 0.31 mg Methylprednisolone Sodium Succinate (Solu-Medrol -) 40 mg IVPUSH Q8H-IV [facility] Last Admin: 09/21/18 01:28 Dose: 40 mg Metoprolol Tartrate (Lopressor -) 50 mg PO TID [facility] Last Admin: 09/21/18 05:21 Dose: 50 mg Morphine Sulfate (Morphine Sulfate) 2 mg IVPUSH Q4H PRN PRN Reason: PAIN LEVEL 7 - 10 Last Admin: 09/20/18 17:35 Dose: 2 mg Scopolamine HBr (Transderm-Scop -) 1 patch TD Q72H [facility] Last Admin: 09/18/18 23:32 Dose: 1 patch Simethicone (Mylicon -) 80 mg PO Q4H PRN PRN Reason: GAS Last Admin: 09/18/18 20:35 Dose: 80 mg - Objective Vital Signs: Vital Signs Temperature 97.8 F 09/21/18 05:19 Pulse Rate 118 H 09/21/18 05:19 Respiratory Rate 22 H 09/21/18 05:19 Blood Pressure 123/72 09/21/18 05:19 O2 Sat by Pulse Oximetry (%) 100 09/20/18 21:00 Constitutional: Yes: No Distress, Calm Eyes: Yes: EOM Intact HENT: Yes: Normocephalic Neck: Yes: Trachea Midline Cardiovascular: Yes: Regular Rate and Rhythm Respiratory: Yes: CTA Bilaterally Gastrointestinal: Yes: Normal Bowel Sounds Extremities: Yes: WNL Edema: No Peripheral Pulses WNL: Yes Labs: CBC, BMP 09/20/18 05:30 09/20/18 05:30 INR, PTT INR 1.58 (0.83-1.09) H 09/16/18 14:41 Assessment/Plan 88 year old female with a pmhx of htn, hld, amyloidosis, chronic sob, remote h/ o GI bleed, and AML who presents with diffuse abdominal pain since night prior to admisison. No chest pain or palpitations. +SOB. CT scan with colitis. WBC 14 EKG: sinus tachycardia with pac's BNP elevated. Telemetry showing normal sinus rhythm with frequent APCs. No atrial fibrillation documented so far. Change lasix to 40 mg PO BID. Continue the other medications as currently. Low-sodium diet and fluid restrictions. No need for further cardiac workup at this point. will follow as needed.
[2018-09-21] MEDS ORDERED: PT OWN MED DRAWER 7, Y5N ONE (09:31)
[2018-09-21] MEDS ORDERED: CALCIUM 500MG/VIT-D 200 UNITS COMBO TABLET (FP) PO SCH (10:00)
[2018-09-21 11:08] VITALS: BP 108/45; PULSE 112
--- NOTE | 2018-09-21 11:25 | PN ---
Progress Note, Physician History of Present Illness: PULMONARY ALERT,COMFORTABLE,-RESP DISTRESS - Current Medication List Current Medications: Active Medications Acetaminophen (Ofirmev Injection -) 1,000 mg IVPB Q6H PRN PRN Reason: PAIN LEVEL 6-10 Last Admin: 09/21/18 05:14 Dose: 1,000 mg Calcium Carbonate/Cholecalciferol (Os-Adelso 500+D -) 2 tab PO DAILY [facility] Last Admin: 09/21/18 09:35 Dose: 2 tab Diltiazem HCl (Cardizem Cd -) 120 mg PO DAILY [facility] Last Admin: 09/21/18 09:35 Dose: 120 mg Furosemide (Lasix -) 40 mg PO BID@0600,1400 [facility] Diltiazem HCl 125 mg/ Sodium (Chloride) 125 mls @ 20 mls/hr IVPB TITR [facility]; Protocol Last Admin: 09/20/18 22:50 Dose: Not Given Levalbuterol HCl (Xopenex) 0.31 mg IH Q8H PRN PRN Reason: ASTHMA Last Admin: 09/19/18 09:54 Dose: 0.31 mg Methylprednisolone Sodium Succinate (Solu-Medrol -) 40 mg IVPUSH Q8H-IV [facility] Last Admin: 09/21/18 11:21 Dose: Not Given Metoprolol Tartrate (Lopressor -) 50 mg PO TID [facility] Last Admin: 09/21/18 05:21 Dose: 50 mg Morphine Sulfate (Morphine Sulfate) 2 mg IVPUSH Q4H PRN PRN Reason: PAIN LEVEL 7 - 10 Last Admin: 09/20/18 17:35 Dose: 2 mg Scopolamine HBr (Transderm-Scop -) 1 patch TD Q72H [facility] Last Admin: 09/18/18 23:32 Dose: 1 patch Simethicone (Mylicon -) 80 mg PO Q4H PRN PRN Reason: GAS Last Admin: 09/18/18 20:35 Dose: 80 mg - Objective Vital Signs: Vital Signs Temperature 97.8 F 09/21/18 11:07 Pulse Rate 112 H 09/21/18 11:07 Respiratory Rate 20 09/21/18 11:07 Blood Pressure 108/45 L 09/21/18 11:07 O2 Sat by Pulse Oximetry (%) 100 09/21/18 09:00 Constitutional: Yes: Well Nourished, Calm Eyes: Yes: WNL HENT: Yes: WNL Neck: Yes: WNL Cardiovascular: Yes: Regular Rate and Rhythm, S1, S2 Respiratory: Yes: Diminished Gastrointestinal: Yes: Normal Bowel Sounds, Soft Extremities: Yes: WNL Edema: No Labs: CBC, BMP Problem List - Problems (1) Dyspnea Code(s): R06.00 - DYSPNEA, UNSPECIFIED (2) AML (acute myeloblastic leukemia) Code(s): C92.00 - ACUTE MYELOBLASTIC LEUKEMIA, NOT HAVING ACHIEVED REMISSION (3) Abdominal pain Code(s): R10.9 - UNSPECIFIED ABDOMINAL PAIN Qualifiers: Abdominal location: unspecified location Qualified Code(s): R10.9 - Unspecified abdominal pain (4) Acute colitis Code(s): K52.9 - NONINFECTIVE GASTROENTERITIS AND COLITIS, UNSPECIFIED (5) HLD (hyperlipidemia) Code(s): E78.5 - HYPERLIPIDEMIA, UNSPECIFIED (6) HTN (hypertension) Code(s): I10 - ESSENTIAL (PRIMARY) HYPERTENSION (7) Anemia Code(s): D64.9 - ANEMIA, UNSPECIFIED Assessment/Plan IMP ABDOMINAL PAIN SECONDARY TO ACUTE COLITIS IMPROVING DYSPNEA MULTIPLE FACTORS ABD PAIN,ANEMIA,TACHY-ARRHYTHMIA AML CHRONIC RUL/RML ATELECTASIS HTN ANEMIA PLAN ANALGESICS O2 DC MEDROL CARDIZEM LOPRESSOR LASIX COMFORT CARE DR FENG Problem List - Problems (1) Dyspnea Code(s): R06.00 - DYSPNEA, UNSPECIFIED (2) AML (acute myeloblastic leukemia) Code(s): C92.00 - ACUTE MYELOBLASTIC LEUKEMIA, NOT HAVING ACHIEVED REMISSION (3) Abdominal pain Code(s): R10.9 - UNSPECIFIED ABDOMINAL PAIN Qualifiers: Abdominal location: unspecified location Qualified Code(s): R10.9 - Unspecified abdominal pain (4) Acute colitis Code(s): K52.9 - NONINFECTIVE GASTROENTERITIS AND COLITIS, UNSPECIFIED (5) HLD (hyperlipidemia) Code(s): E78.5 - HYPERLIPIDEMIA, UNSPECIFIED (6) HTN (hypertension) Code(s): I10 - ESSENTIAL (PRIMARY) HYPERTENSION (7) Anemia Code(s): D64.9 - ANEMIA, UNSPECIFIED
--- NOTE | 2018-09-21 12:04 | DS ---
Physical Examination Vital Signs: Vital Signs Temperature 97.8 F 09/21/18 11:07 Pulse Rate 112 H 09/21/18 11:07 Respiratory Rate 20 09/21/18 11:07 Blood Pressure 108/45 L 09/21/18 11:07 O2 Sat by Pulse Oximetry (%) 100 09/21/18 09:00 Constitutional: Yes: Mild Distress Eyes: Yes: WNL HENT: Yes: WNL Neck: Yes: WNL Cardiovascular: Yes: Tachycardia, Pulse Irregular Respiratory: Yes: On Nasal O2, SOB on Exertion Gastrointestinal: Yes: Tenderness Renal/: Yes: Incontinence, Other Musculoskeletal: Yes: Muscle Weakness Extremities: Yes: Other Edema: Yes Peripheral Pulses WNL: Yes Integumentary: Yes: WNL Wound/Incision: Yes: Other Neurological: Yes: Confusion, Pre-Existing Deficit ...Motor Strength: LLE, RLE Psychiatric: Yes: Other Labs: CBC, BMP 09/20/18 05:30 09/20/18 05:30 Discharge Summary Reason For Visit: ATRIAL FIBRILLATION WITH RVR; ABDOMINAL PAIN Current Active Problems AML (acute myeloblastic leukemia) (Acute) Abdominal pain (Acute) Acute colitis (Acute) Anemia (Acute) Atrial fibrillation with RVR (Acute) Dyspnea (Acute) HLD (hyperlipidemia) (Acute) HTN (hypertension) (Acute) Hypocalcemia (Acute) Hypokalemia (Acute) Procedures: Principal: ct scan Hospital Course: admitted AML, acute colitis, tachycardia, treated iv abx, telemetry, iv cardizem. Family opted for home hospice care. Condition: Stable - Instructions Diet, Activity, Other Instructions: Home Hospice Disposition: VNS/HOME HEALTH CARE - Home Medications Comprehensive Discharge Medication List: Ambulatory Orders Albuterol Sulfate [Proair Hfa -] 1 - 2 inh PO PRN #0 [id number] 09/04/13 Calcium Carbonate/Vitamin D3 [Calcium 500 + Vit D 200 Tablet] 1 each PO DAILY # 0 tablet 09/04/13 Docusate Sodium [Colace -] 100 mg PO DAILY #0 capsule 09/04/13 Folic Acid - 1 mg PO DAILY #0 tablet 09/04/13 Lansoprazole [Prevacid] 30 mg PO DAILY #0 capsule.dr 09/04/13 Losartan Potassium 50 mg PO DAILY #0 tablet 09/04/13 Metoprolol Succinate [Toprol XL -] 50 mg PO DAILY #0 tab.sr.24h 09/04/13 traMADol HCL [Ultram -] 50 mg PO Q8H PRN #0 tablet 09/04/13 Cyanocobalamin [Vitamin B12 -] 1,000 mcg PO DAILY 09/16/18 Hydroxyurea [Hydrea -] 500 mg PO BID 09/16/18 Hyoscyamine Sulfate [Levsin] 0.375 mg PO ASDIR PRN 09/16/18 Meclizine HCl [Antivert -] 25 mg PO TID PRN 09/16/18 Ondansetron [Zofran Odt -] 4 mg SL TID PRN 09/16/18
[2018-09-21] MEDS ORDERED: FUROSEMIDE 40 MG TABLET (FP) PO SCH (14:00)
== END 2018-09-21 14:00 | disposition home health service (06) | DRG 394 ==
LOC: JER 13:15 → JERBED 18:41 → J4W 09-17 15:33
PROVIDERS: ADMIT Internal Medicine; ATTEND Family Medicine
DX: K55.9 Vascular disorder of intestine, unspecified (principal); E85.9 Amyloidosis, unspecified; C92.00 Acute myeloblastic leukemia, not having achieved remission; J98.11 Atelectasis; J81.1 Chronic pulmonary edema; I47.1 Supraventricular tachycardia; I13.0 Hypertensive heart and chronic kidney disease with heart failure and stage 1 through stage 4 chronic kidney disease, or unspecified chronic kidney disease; E78.5 Hyperlipidemia, unspecified; I48.91 Unspecified atrial fibrillation; R10.9 Unspecified abdominal pain; R00.0 Tachycardia, unspecified; K52.9 Noninfective gastroenteritis and colitis, unspecified; D64.9 Anemia, unspecified; E87.6 Hypokalemia; E83.51 Hypocalcemia; E83.42 Hypomagnesemia; E87.70 Fluid overload, unspecified; N18.9 Chronic kidney disease, unspecified; Z51.5 Encounter for palliative care; Z66 Do not resuscitate
CPT/HCPCS: 36415; 71045-TC-FY; 74019-TC-FY; 74177-TC; 80048; 80053; 81003; 81015; 82803; 83036; 83605; 83735; 83880; 84100; 84484; 85025; 85027; 85610; 85730; 87040; 87086; 87186; 87324; 87449; 87493; 93005; 93010; 93970-TC; 99285-25; J0131; J1756; J7030